=== PATIENT | male | born 1940 | race Caucasian/White ===

== ENCOUNTER 2017-07-19 07:47 | Inpatient (IN) | payer MEDICARE ==
[~2017-07-19] VITALS: Ht 177.8 cm; Wt 104.5 kg
[~2017-07-19 07:47] MED LIST: ALBU90OI INH; ASCO1ER PO; ASCO500 PO; ASPI325 PO; ASPI325EC PO; CHOL10002 PO; ERGO400 PO; FISH1000 PO; GLIP5 PO; LANS30EC PO; LISHYD2025 PO; METF500 PO; METO50 PO; MULVITMIND PO; MULVITMINF PO; OMEG1CAP30 PO; OXYACE5T PO; PRED20 PO; RANI150 PO; ROSU10TA PO; ROSU5 PO; SPACER IH
[2017-07-19 08:14] LABS: BASOPHILS ABSOLUTE AUTO 0.01 K/mm3 (0.00-0.23); BASOPHILS PERCENT AUTO 0 % (0-2); EOSINOPHILS ABSOLUTE AUTO 0.19 K/mm3 (0.00-0.68); EOSINOPHILS PERCENT AUTO 2 % (0-6); Hematocrit 35.3 % (37.0-53.0); Hemoglobin 11.7 g/dL (13.5-17.5); IMMATURE GRAN ABSOLUTE AUTO 0.02 K/mm3 (0.00-0.10); IMMATURE GRAN PERCENT AUTO 0 % (0-1); LYMPHOCYTES ABSOLUTE AUTO 2.82 K/mm3 (0.84-5.20); LYMPHOCYTES PERCENT AUTO 31 % (21-46); MONOCYTES ABSOLUTE AUTO 0.61 K/mm3 (0.16-1.47); MONOCYTES PERCENT AUTO 7 % (4-13); Mean Corpuscular HGB 31.1 pg (26.0-34.0); Mean Corpuscular HGB Conc 33.1 g/dL (31.5-36.5); Mean Corpuscular Volume 94 fL (80-100); Mean Platelet Volume 11.5 fL (9.1-12.4); NEUTROPHILS ABSOLUTE AUTO 5.58 K/mm3 (1.96-9.15); NEUTROPHILS PERCENT AUTO 60 % (41-73); Platelet Count 253 K/mm3 (150-400); RDW Coefficient Variation 13.1 % (11.7-14.2); RDW Standard Deviation 44.8 fL (35.1-46.3); Red Blood Cell Count 3.76 M/mm3 (4.30-5.90); White Blood Cell Count 9.23 K/mm3 (4.00-11.30)
[2017-07-19 08:48] LABS: Thyroid Stimulating Hormone 9.13 uIU/mL (0.360-4.800); Troponin I 0.022 ng/mL (0.000-0.040)
[2017-07-19 08:49] LABS: Albumin, Blood 3.4 g/dL (3.4-5.0); Albumin/Globulin Ratio 0.9 (0.8-1.8); Bilirubin, Total 0.6 mg/dL (0.1-1.0); Bun/Creatinine Ratio 14.2 (12.0-20.0); Calcium, Blood 8.5 mg/dL (8.5-10.1); Creatinine, Blood 1.48 mg/dL (0.60-1.20); Globulin, Blood 3.7 g/dL (2.2-4.0); Potassium, Blood 4.4 mmol/L (3.5-5.5); Total Protein, Blood 7.1 g/dL (6.4-8.2)
[2017-07-19 10:10] LABS: International Normalized Ratio 0.99; Prothrombin Time Results 10.3 Sec (9.7-11.5)
== END 2017-07-19 15:05 | disposition short-term general hospital (02) | DRG 287 ==
LOC: ER 07:47 → ICUW 07:48 → ICUE 07:48
PROVIDERS: Emergency Medicine; Pharmacist
PROC: B216YZZ Fluoroscopy of Right and Left Heart using Other Contrast (ICD-10-PCS; principal; 2017-07-19)
PROC: 4A023N7 Measurement of Cardiac Sampling and Pressure, Left Heart, Percutaneous Approach (ICD-10-PCS; principal; 2017-07-19)
PROC: B211YZZ Fluoroscopy of Multiple Coronary Arteries using Other Contrast (ICD-10-PCS; principal; 2017-07-19)
DX: I25.110 Atherosclerotic heart disease of native coronary artery with unstable angina pectoris (principal); E11.65 Type 2 diabetes mellitus with hyperglycemia; I10 Essential (primary) hypertension; E78.5 Hyperlipidemia, unspecified; G47.33 Obstructive sleep apnea (adult) (pediatric); Z95.5 Presence of coronary angioplasty implant and graft; Z79.84 Long term (current) use of oral hypoglycemic drugs; Z88.0 Allergy status to penicillin; Z68.32 Body mass index [BMI] 32.0-32.9, adult
CPT/HCPCS: 71046; 76937; 80053; 83690; 83880; 84443; 84484; 85025; 85610; 85730; 93005; 93010; 93306; 93454; 96374; 96375; 99152; 99153; 99285; C1769; C1894; J1644; J2060; J2250; J2405; J3010; J7030; J7040; Q9967

== ENCOUNTER 2017-09-21 18:36 | Inpatient (IN) | payer MEDICARE ==
[~2017-09-21] VITALS: Ht 177.8 cm; Wt 100.8 kg
[~2017-09-21 18:36] MED LIST changes: -ALLO100 PO; -ATOR40TA PO; -CARV6.25 PO; -CLOP75 PO; -FURO100EL PO; -FURO40 PO; -LISI5 PO; -Lipofen150 MG PO; -OMEPRAZOLE MAGN20 MG PO; -TICA90TA PO
[2017-09-21] MEDS ORDERED: ATOR40TA PO (21:19)
[2017-09-21] MEDS ORDERED: TICA90TA PO (21:19)
[2017-09-21] MEDS ORDERED: Lipofen150 MG PO (21:20)
[2017-09-21] MEDS ORDERED: FURO100EL PO (21:21)
[2017-09-21] MEDS ORDERED: OMEPRAZOLE MAGN20 MG PO (21:22)
[2017-09-22 09:17] LABS: BASOPHILS ABSOLUTE AUTO 0.02 K/mm3 (0.00-0.23); BASOPHILS PERCENT AUTO 0 % (0-2); EOSINOPHILS PERCENT AUTO 2 % (0-6); Hematocrit 28.9 % (37.0-53.0); Hemoglobin 9.2 g/dL (13.5-17.5); IMMATURE GRAN ABSOLUTE AUTO 0.02 K/mm3 (0.00-0.10); IMMATURE GRAN PERCENT AUTO 0 % (0-1); LYMPHOCYTES ABSOLUTE AUTO 2.06 K/mm3 (0.84-5.20); LYMPHOCYTES PERCENT AUTO 21 % (21-46); MONOCYTES ABSOLUTE AUTO 0.66 K/mm3 (0.16-1.47); MONOCYTES PERCENT AUTO 7 % (4-13); Mean Corpuscular HGB 28.9 pg (26.0-34.0); Mean Corpuscular HGB Conc 31.8 g/dL (31.5-36.5); Mean Corpuscular Volume 91 fL (80-100); Mean Platelet Volume 11.4 fL (9.1-12.4); NEUTROPHILS ABSOLUTE AUTO 6.83 K/mm3 (1.96-9.15); NEUTROPHILS PERCENT AUTO 70 % (41-73); Platelet Count 375 K/mm3 (150-400); RDW Coefficient Variation 14.2 % (11.7-14.2); RDW Standard Deviation 47.3 fL (35.1-46.3); Red Blood Cell Count 3.18 M/mm3 (4.30-5.90); White Blood Cell Count 9.79 K/mm3 (4.00-11.30)
[2017-09-22 09:37] LABS: Bun/Creatinine Ratio 14.2 (12.0-20.0); Calcium, Blood 8.7 mg/dL (8.5-10.1); Creatinine, Blood 1.41 mg/dL (0.60-1.20); Potassium, Blood 3.8 mmol/L (3.5-5.5)
[2017-09-23] MEDS ORDERED: CARV6.25 PO (12:35)
[2017-09-23] MEDS ORDERED: CLOP75 PO (12:37)
[2017-09-23] MEDS ORDERED: LISI5 PO (12:38)
[2017-09-23] MEDS ORDERED: ALLO100 PO (12:39)
[2017-09-23] MEDS ORDERED: FURO40 PO (12:40)
== END 2017-09-23 14:50 | disposition home or self-care (01) | DRG 291 ==
LOC: ER 18:36 → MEDS 20:38 → ENPENDDIS 09-23 10:00 → MEDS 09-23 14:50
PROVIDERS: Hospitalist
DX: I50.23 Acute on chronic systolic (congestive) heart failure (principal); J96.01 Acute respiratory failure with hypoxia; N17.9 Acute kidney failure, unspecified; I13.0 Hypertensive heart and chronic kidney disease with heart failure and stage 1 through stage 4 chronic kidney disease, or unspecified chronic kidney disease; E11.22 Type 2 diabetes mellitus with diabetic chronic kidney disease; I25.5 Ischemic cardiomyopathy; M10.30 Gout due to renal impairment, unspecified site; I48.91 Unspecified atrial fibrillation; D63.1 Anemia in chronic kidney disease; N18.3 Chronic kidney disease, stage 3 (moderate); I25.10 Atherosclerotic heart disease of native coronary artery without angina pectoris; E78.5 Hyperlipidemia, unspecified; E03.9 Hypothyroidism, unspecified; K21.9 Gastro-esophageal reflux disease without esophagitis; I25.2 Old myocardial infarction; Z87.891 Personal history of nicotine dependence; Z79.899 Other long term (current) drug therapy; Z95.5 Presence of coronary angioplasty implant and graft; Z98.890 Other specified postprocedural states; Z88.0 Allergy status to penicillin; Z88.8 Allergy status to other drugs, medicaments and biological substances; Z79.82 Long term (current) use of aspirin; Z79.84 Long term (current) use of oral hypoglycemic drugs
CPT/HCPCS: 36415; 80048; 82947; 83036; 84484; 84550; 85025; 93005; 93010; 93308; 93321; 99285; J1940

== ENCOUNTER → 2017-09-21 | Outpatient (CLI) | payer MEDICARE ==
[~2017-09-21] MED LIST changes: +ALLO100 PO; +ATOR40TA PO; +CARV6.25 PO; +CENTRUM SILVER1 EAC2 PO; +CLOP75 PO; +FURO100EL PO; +FURO40 PO; +LISI5 PO; +Lipofen150 MG PO; +METF500C PO; -MULVITMINF PO; +OMEPRAZOLE MAGN20 MG PO; +TICA90TA PO
[2017-09-21 17:11] LABS: BASOPHILS ABSOLUTE AUTO 0.03 K/mm3 (0.00-0.23); BASOPHILS PERCENT AUTO 0 % (0-2); EOSINOPHILS ABSOLUTE AUTO 0.15 K/mm3 (0.00-0.68); EOSINOPHILS PERCENT AUTO 1 % (0-6); Hematocrit 31.1 % (37.0-53.0); Hemoglobin 9.9 g/dL (13.5-17.5); IMMATURE GRAN ABSOLUTE AUTO 0.03 K/mm3 (0.00-0.10); IMMATURE GRAN PERCENT AUTO 0 % (0-1); LYMPHOCYTES ABSOLUTE AUTO 2.57 K/mm3 (0.84-5.20); LYMPHOCYTES PERCENT AUTO 21 % (21-46); MONOCYTES ABSOLUTE AUTO 0.75 K/mm3 (0.16-1.47); MONOCYTES PERCENT AUTO 6 % (4-13); Mean Corpuscular HGB 28.8 pg (26.0-34.0); Mean Corpuscular HGB Conc 31.8 g/dL (31.5-36.5); Mean Corpuscular Volume 90 fL (80-100); Mean Platelet Volume 11.4 fL (9.1-12.4); NEUTROPHILS ABSOLUTE AUTO 8.63 K/mm3 (1.96-9.15); NEUTROPHILS PERCENT AUTO 71 % (41-73); Platelet Count 464 K/mm3 (150-400); RDW Coefficient Variation 14.4 % (11.7-14.2); RDW Standard Deviation 46.6 fL (35.1-46.3); Red Blood Cell Count 3.44 M/mm3 (4.30-5.90); White Blood Cell Count 12.16 K/mm3 (4.00-11.30)
[2017-09-21 17:26] LABS: Albumin, Blood 2.9 g/dL (3.4-5.0); Albumin/Globulin Ratio 0.6 (0.8-1.8); Bilirubin, Total 0.5 mg/dL (0.1-1.0); Calcium, Blood 8.8 mg/dL (8.5-10.1); Creatinine, Blood 1.66 mg/dL (0.60-1.20); Total Protein, Blood 7.9 g/dL (6.4-8.2)
== END | disposition home or self-care (01) ==
LOC: LAB SHORT 17:06 → LAB EV 17:06
PROVIDERS: Physician Assistant
DX: R06.09 Other forms of dyspnea (principal)
CPT/HCPCS: 80053; 83880; 84484; 85025

== ENCOUNTER 2022-06-06 13:09 | Inpatient (IN) | payer OTHER ==
[~2022-06-06] VITALS: Ht 177.8 cm; Wt 94.8 kg
[~2022-06-06 13:09] MED LIST changes: +ALLO100 PO; +ATOR40TA PO; +CARV6.25 PO; +CLOP75 PO; +FURO100EL PO; +FURO40 PO; +LISI5 PO; +Lipofen150 MG PO; +OMEP20ER PO; +TICA90TA PO
[2022-06-06 13:51] LABS: BASOPHILS ABSOLUTE AUTO 0.01 K/mm3 (0.00-0.23); BASOPHILS PERCENT AUTO 0 % (0-2); EOSINOPHILS PERCENT AUTO 0 % (0-6); Hematocrit 35.9 % (37.0-53.0); Hemoglobin 12.5 g/dL (13.5-17.5); IMMATURE GRAN ABSOLUTE AUTO 0.03 K/mm3 (0.00-0.10); IMMATURE GRAN PERCENT AUTO 0 % (0-1); LYMPHOCYTES ABSOLUTE AUTO 1.28 K/mm3 (0.84-5.20); LYMPHOCYTES PERCENT AUTO 14 % (21-46); MONOCYTES ABSOLUTE AUTO 0.84 K/mm3 (0.16-1.47); MONOCYTES PERCENT AUTO 9 % (4-13); Mean Corpuscular HGB 30.8 pg (26.0-34.0); Mean Corpuscular HGB Conc 34.8 g/dL (31.5-36.5); Mean Corpuscular Volume 88 fL (80-100); Mean Platelet Volume 11.7 fL (9.1-12.4); NEUTROPHILS ABSOLUTE AUTO 6.99 K/mm3 (1.96-9.15); NEUTROPHILS PERCENT AUTO 76 % (41-73); Platelet Count 179 K/mm3 (150-400); RDW Coefficient Variation 13.7 % (11.7-14.2); RDW Standard Deviation 44.6 fL (35.1-46.3); Red Blood Cell Count 4.06 M/mm3 (4.30-5.90); White Blood Cell Count 9.15 K/mm3 (4.00-11.30)
[2022-06-06 14:07] LABS: Albumin, Blood 2.9 g/dL (3.4-5.0); Albumin/Globulin Ratio 0.8 (0.8-1.8); Bilirubin, Total 0.4 mg/dL (0.1-1.0); Bun/Creatinine Ratio 17.1 (12.0-20.0); Calcium, Blood 8.9 mg/dL (8.5-10.1); Creatinine, Blood 1.7 mg/dL (0.60-1.20); Globulin, Blood 3.6 g/dL (2.2-4.0); Total Protein, Blood 6.5 g/dL (6.4-8.2)
[2022-06-06 14:38] LABS: Influenza A, PCR NEGATIVE (NEGATIVE); Influenza B, PCR NEGATIVE (NEGATIVE); Resp Syncytial Virus, PCR NEGATIVE (NEGATIVE)
[2022-06-06 16:36] LABS: Anti-Xa UFH, PHA Monitoring <0.10 IU/mL; International Normalized Ratio 1.02; Prothrombin Time Results 10.7 Sec (9.7-11.5)
[2022-06-06 18:52] LABS: SARS-Cov-2 (COVID-19) PCR, MMC POSITIVE (NEGATIVE)
--- NOTE | 2022-06-06 21:24 | NUR ---
PT ARRIVED FROM ED AT SHIFT CHANGE 1900, LEFT HAND WITH IV WAS VERY SWOLLEN FROM INFILTRATION, IV REMOVED WILL CONTINUE TO MONITOR
[2022-06-07 06:21] LABS: BASOPHILS ABSOLUTE AUTO 0.01 K/mm3 (0.00-0.23); BASOPHILS PERCENT AUTO 0 % (0-2); EOSINOPHILS PERCENT AUTO 0 % (0-6); Hematocrit 35.2 % (37.0-53.0); Hemoglobin 12.1 g/dL (13.5-17.5); IMMATURE GRAN ABSOLUTE AUTO 0.05 K/mm3 (0.00-0.10); IMMATURE GRAN PERCENT AUTO 1 % (0-1); LYMPHOCYTES ABSOLUTE AUTO 0.98 K/mm3 (0.84-5.20); LYMPHOCYTES PERCENT AUTO 12 % (21-46); MONOCYTES ABSOLUTE AUTO 0.53 K/mm3 (0.16-1.47); MONOCYTES PERCENT AUTO 6 % (4-13); Mean Corpuscular HGB 30.8 pg (26.0-34.0); Mean Corpuscular HGB Conc 34.4 g/dL (31.5-36.5); Mean Corpuscular Volume 90 fL (80-100); NEUTROPHILS ABSOLUTE AUTO 6.85 K/mm3 (1.96-9.15); NEUTROPHILS PERCENT AUTO 81 % (41-73); Platelet Count 171 K/mm3 (150-400); RDW Coefficient Variation 13.7 % (11.7-14.2); RDW Standard Deviation 45.1 fL (35.1-46.3); Red Blood Cell Count 3.93 M/mm3 (4.30-5.90); White Blood Cell Count 8.42 K/mm3 (4.00-11.30)
--- NOTE | 2022-06-07 06:27 | NUR ---
PT IS A&O4, SB TO THE BR, USING URINAL, 3LNC, PRN PAIN MEDICATION GIVEN OVERNIGHT FOR MILD THROAT PAIN AND GENERALIZED BODY ACHES, VSS, NO COMPLAINTS OF CP OR SOB, CONTINUE POC
[2022-06-07 06:46] LABS: Albumin, Blood 2.6 g/dL (3.4-5.0); Albumin/Globulin Ratio 0.7 (0.8-1.8); Bilirubin, Total 0.5 mg/dL (0.1-1.0); Bun/Creatinine Ratio 19.2 (12.0-20.0); Calcium, Blood 8.5 mg/dL (8.5-10.1); Creatinine, Blood 2.08 mg/dL (0.60-1.20); Globulin, Blood 3.9 g/dL (2.2-4.0); Potassium, Blood 4.3 mmol/L (3.5-5.5); Total Protein, Blood 6.5 g/dL (6.4-8.2)
--- NOTE | 2022-06-07 08:31 | NUR ---
HOLD HEPARIN FOR 1 HOUR AT 0930 START HEPARIN BACK UP AT 10UTS/KG/HR
[2022-06-08 05:18] LABS: BASOPHILS ABSOLUTE AUTO 0.01 K/mm3 (0.00-0.23); BASOPHILS PERCENT AUTO 0 % (0-2); EOSINOPHILS PERCENT AUTO 0 % (0-6); Hematocrit 34.9 % (37.0-53.0); IMMATURE GRAN ABSOLUTE AUTO 0.05 K/mm3 (0.00-0.10); IMMATURE GRAN PERCENT AUTO 1 % (0-1); LYMPHOCYTES ABSOLUTE AUTO 1.08 K/mm3 (0.84-5.20); LYMPHOCYTES PERCENT AUTO 11 % (21-46); MONOCYTES PERCENT AUTO 7 % (4-13); Mean Corpuscular HGB 30.5 pg (26.0-34.0); Mean Corpuscular HGB Conc 34.4 g/dL (31.5-36.5); Mean Corpuscular Volume 89 fL (80-100); Mean Platelet Volume 12.3 fL (9.1-12.4); NEUTROPHILS ABSOLUTE AUTO 8.01 K/mm3 (1.96-9.15); NEUTROPHILS PERCENT AUTO 81 % (41-73); Platelet Count 188 K/mm3 (150-400); RDW Coefficient Variation 13.6 % (11.7-14.2); RDW Standard Deviation 44.6 fL (35.1-46.3); Red Blood Cell Count 3.93 M/mm3 (4.30-5.90); White Blood Cell Count 9.85 K/mm3 (4.00-11.30)
--- NOTE | 2022-06-08 06:31 | NUR ---
SONOGRAPHY TECHNOLOGIST SUMMARY NO ACUTE CHANGES. PT ON HEPARIN DRIP; 7 UNITS/KG AT START OF SHIFT; AFTER LABS, PHARMACY CALLED TO ADJUST DRIP DOWN TO 6 UNITS/KG HR--VERIFIED W/LAURA RENDON. PT A/OX4 W/SOME FOREGETFULLNESS AND SLOW TO RESPOND. DR INFANTE AT BEDSIDE W/PT AT BEGINNING OF SHIFT--CHANGES MADE TO PT MEDICATIONS. EDUCATED PT ON CHANGES AND ADDITION OF JARDIANCE. PT ON 2L NC O2. VSS. RODRÍGUEZ POWER GLIDE INFUSING HEPARIN ADN DRAWS. PT DENIES CHEST PAIN/PRESSURE OR SOB AT REST. NOTED SOB W/EXERTION. PT ABLE TO MAKE NEEDS KNOWN. CALL LIGHT ACCESSIBLE.
[2022-06-08 16:28] LABS: Bun/Creatinine Ratio 27.1 (12.0-20.0); Calcium, Blood 8.4 mg/dL (8.5-10.1); Creatine Kinase MB 6.6 ng/mL (0.0-3.6); Creatine Kinase MB Index 1.7 (0.0-4.0); Creatinine, Blood 2.14 mg/dL (0.60-1.20); Potassium, Blood 4.3 mmol/L (3.5-5.5)
[2022-06-08 16:39] LABS: Anti-Xa UFH, PHA Monitoring 0.36 IU/mL
--- NOTE | 2022-06-08 20:12 | NUR ---
SHIFT SUMMARY PTN CONTINUES ENHANCED DROPLET PRECAUTIONS. PTN ON HEPARIN DRIP. CRITICAL LAB OF [facility] RETURNED, BUT TRENDING IN RIGHT DIRECTION, DOCUMENTED. COVERAGE FOR BLOOD SUGARS PER ORDERS. TELEMETRY SINUS MANDEEP, BBB, HR 56. NO OTHER ACUTE EVENTS THIS SHIFT. CONTINUE TO MONITOR.
--- NOTE | 2022-06-09 04:52 | NUR ---
JUNIOR ACCOUNTANT SUMMARY NO ACUTE CHANGES. PT PLEASANT AND COOPERATIVE. PT REMAINS ON HEP DRIP--RATE ADJUSTED TO 6.5U/K/HR PER PHARMACY. PT CONCERNED ABOUT ELEVATED BLOOD SUGAR LEVELS; PT EDUCATION ON EFFECTS OF STEROIDS ON BLOOD SUGAR. PT EDUCATION ON HEPARIN AND REASON FOR MULTIIPLE LAB DRAWS. PT DENIES CHEST PAIN/PRESSURE. CALL LIGHT ACCESSIBLE.
--- NOTE | 2022-06-09 05:12 | NUR ---
NURSE NOTE--PHYICIAN CONTACT PT C/O HEART BURN; HX OF GERD. PT TAKES 20MG OMEPROZOLE PER PT AND PHARMACY MED REC. CALL TO PLATFORM MILL SUPERVISOR ; NEW ORDER FOR 20MG OMEPROZOLE AB.
[2022-06-09 07:04] LABS: BASOPHILS PERCENT AUTO 0 % (0-2); EOSINOPHILS PERCENT AUTO 0 % (0-6); Hematocrit 31.6 % (37.0-53.0); Hemoglobin 10.9 g/dL (13.5-17.5); IMMATURE GRAN ABSOLUTE AUTO 0.02 K/mm3 (0.00-0.10); IMMATURE GRAN PERCENT AUTO 0 % (0-1); LYMPHOCYTES ABSOLUTE AUTO 0.67 K/mm3 (0.84-5.20); LYMPHOCYTES PERCENT AUTO 12 % (21-46); MONOCYTES ABSOLUTE AUTO 0.61 K/mm3 (0.16-1.47); MONOCYTES PERCENT AUTO 11 % (4-13); Mean Corpuscular HGB 30.4 pg (26.0-34.0); Mean Corpuscular HGB Conc 34.5 g/dL (31.5-36.5); Mean Corpuscular Volume 88 fL (80-100); Mean Platelet Volume 12.4 fL (9.1-12.4); NEUTROPHILS ABSOLUTE AUTO 4.25 K/mm3 (1.96-9.15); NEUTROPHILS PERCENT AUTO 77 % (41-73); Platelet Count 187 K/mm3 (150-400); RDW Coefficient Variation 13.7 % (11.7-14.2); RDW Standard Deviation 44.9 fL (35.1-46.3); Red Blood Cell Count 3.58 M/mm3 (4.30-5.90); White Blood Cell Count 5.55 K/mm3 (4.00-11.30)
[2022-06-09 08:33] LABS: Calcium, Blood 8.2 mg/dL (8.5-10.1); Creatinine, Blood 2.43 mg/dL (0.60-1.20); Potassium, Blood 4.1 mmol/L (3.5-5.5)
[2022-06-09 12:52] LABS: Bilirubin, Urine Neg (Neg); Blood, Urine 3+ (Neg); Glucose Qualitative, Urine 4+ (Neg); Ketones, Urine Neg (Neg); Leukocyte Esterase, Urine Neg (Neg); Nitrite, Urine Neg (Neg); Protein, Urine 2+ (Neg); Source, Urine Straight Cath; Specific Gravity, Urine 1.015 (1.003-1.022); Urobilinogen, Urine NORM (Normal)
[2022-06-09 13:54] LABS: Appearance, Urine Hazy (Clear); Color, Urine Pale Yellow (P-Yellow)
[2022-06-09 13:56] LABS: Amorphous Light (0-Heavy); Bacteria Mod /hpf; Mucus Light (0-Heavy); Squamous Epithelial Cells Rare /hpf (Few); White Blood Cells, Urine 0-2 /hpf (0-5)
--- NOTE | 2022-06-09 20:28 | NUR ---
SHIFT SUMMARY NO ACUTE EVENTS. HEPARIN DISCONTINUED THIS SHIFT. PTN REPORTS FEEING SOMEWHAT BETTER. O2 WAS DISCONTINUED AND PTN O2 AROUND 95. NO REPORT OF SOB. CONTINUE TO MONITOR.
[2022-06-10 08:43] LABS: Calcium, Blood 8.1 mg/dL (8.5-10.1); Creatinine, Blood 2.25 mg/dL (0.60-1.20); Potassium, Blood 4.1 mmol/L (3.5-5.5)
--- NOTE | 2022-06-10 09:22 | NUR ---
SLEPT WELL OVERNIGHT. MAINTAINING SATURATIONS ON ROOM AIR NO COMPLAINTS OF PAIN OR SOB. LUNGS DIMINISHED THROUGHOUT. CONTINUES TO STAND AT BEDSIDE TO USE URINAL. AOX4, PLEASANT GENTLEMAN COOPERATIVE WITH CARE
[2022-06-10] MEDS ORDERED: JARDIANCE10 MG PO (14:46)
[2022-06-10] MEDS ORDERED: DECADRON6 M1 PO (14:46)
[2022-06-10] MEDS ORDERED: ISODIN20 PO (14:47)
[2022-06-10] MEDS ORDERED: HYDRA25 PO (14:47)
[2022-06-10] MEDS ORDERED: SPIR25 PO (14:48)
--- NOTE | 2022-06-10 16:16 | NUR ---
DISCHARGE NOTE PT DISCHARGED TO HOME AND PICKED UP BY HIS SISTER IN LAW. HE WAS TAKEN TO HIS VEHICLE BY WHEELCHAIR WITH THE ANIMAL PHYSIOLOGY TEACHER. PG AND IV REMOVED SUCCESSFULLY. PT'S MEDICATIONS FAXED TO THE PHARMACY OF HIS CHOICE. DISCHARGE INSTRUCTIONS AND EDUCATION PROVIDED. PERSONAL BELONGINGS WERE RETURNED.
== END 2022-06-10 16:10 | disposition home or self-care (01) | DRG 177 ==
LOC: ER 13:09 → MEDS 15:37
PROVIDERS: Emergency Medicine; Internal Medicine Cardiovascular Disease; Student in an Organized Health Care Education/Training Program; ADMIT Internal Medicine
PROC: 8E0ZXY6 Isolation (ICD-10-PCS; principal; 2022-06-06)
PROC: 3E0333Z Introduction of Anti-inflammatory into Peripheral Vein, Percutaneous Approach (ICD-10-PCS; 2022-06-06)
PROC: XW033E5 Introduction of Remdesivir Anti-infective into Peripheral Vein, Percutaneous Approach, New Technology Group 5 (ICD-10-PCS; 2022-06-06)
PROC: XW0DXM6 Introduction of Baricitinib into Mouth and Pharynx, External Approach, New Technology Group 6 (ICD-10-PCS; 2022-06-06)
DX: U07.1 COVID-19 (principal); I21.4 Non-ST elevation (NSTEMI) myocardial infarction; I50.43 Acute on chronic combined systolic (congestive) and diastolic (congestive) heart failure; J96.01 Acute respiratory failure with hypoxia; J12.82 Pneumonia due to coronavirus disease 2019; N17.9 Acute kidney failure, unspecified; E87.1 Hypo-osmolality and hyponatremia; D50.9 Iron deficiency anemia, unspecified; I25.5 Ischemic cardiomyopathy; E11.22 Type 2 diabetes mellitus with diabetic chronic kidney disease; N40.0 Benign prostatic hyperplasia without lower urinary tract symptoms; N18.32 Chronic kidney disease, stage 3b; K21.9 Gastro-esophageal reflux disease without esophagitis; E78.1 Pure hyperglyceridemia; Z95.1 Presence of aortocoronary bypass graft; Z98.49 Cataract extraction status, unspecified eye; Z98.890 Other specified postprocedural states; Z88.0 Allergy status to penicillin; Z88.8 Allergy status to other drugs, medicaments and biological substances; Z79.82 Long term (current) use of aspirin; Z79.84 Long term (current) use of oral hypoglycemic drugs; Z79.899 Other long term (current) drug therapy
CPT/HCPCS: 0241U; 36415; 71045; 78580; 80048; 80053; 81001; 82550; 82553; 82570; 82947; 83880; 84145; 84300; 84484; 84540; 85025; 85379; 85520; 85610; 87086; 93005; 93010; 96365; 96375; 99285-25; A9270; A9540; C8929; J0248; J0696; J1100; J1644; J1815; J1940; J7050; Q9957

== ENCOUNTER 2022-06-21 23:38 | Inpatient (IN) | payer OTHER ==
[~2022-06-21] VITALS: Ht 180.3 cm; Wt 87.0 kg
[~2022-06-21 23:38] MED LIST changes: -CHOL10002 PO; +DECADRON6 M1 PO; -GLIP5 PO; +GLUCOPHAGE1000 M1 PO; +HYDRA25 PO; +ISODIN20 PO; +JARDIANCE10 MG PO; -METF500C PO; -OMEG1CAP30 PO; +OMEGA-3-FISH O1 EAC3 PO; +SPIR25 PO; +VITAMIN D5000 UNIT PO
[2022-06-22 01:41] LABS: BASOPHILS ABSOLUTE AUTO 0.04 K/mm3 (0.00-0.23); BASOPHILS PERCENT AUTO 0 % (0-2); EOSINOPHILS ABSOLUTE AUTO 0.09 K/mm3 (0.00-0.68); EOSINOPHILS PERCENT AUTO 1 % (0-6); Hemoglobin 12.5 g/dL (13.5-17.5); IMMATURE GRAN ABSOLUTE AUTO 0.07 K/mm3 (0.00-0.10); IMMATURE GRAN PERCENT AUTO 1 % (0-1); LYMPHOCYTES ABSOLUTE AUTO 2.35 K/mm3 (0.84-5.20); LYMPHOCYTES PERCENT AUTO 16 % (21-46); MONOCYTES ABSOLUTE AUTO 0.67 K/mm3 (0.16-1.47); MONOCYTES PERCENT AUTO 4 % (4-13); Mean Corpuscular HGB 29.8 pg (26.0-34.0); Mean Corpuscular HGB Conc 32.9 g/dL (31.5-36.5); Mean Corpuscular Volume 91 fL (80-100); Mean Platelet Volume 12.5 fL (9.1-12.4); NEUTROPHILS ABSOLUTE AUTO 11.94 K/mm3 (1.96-9.15); NEUTROPHILS PERCENT AUTO 79 % (41-73); Platelet Count 197 K/mm3 (150-400); RDW Coefficient Variation 13.7 % (11.7-14.2); RDW Standard Deviation 45.1 fL (35.1-46.3); White Blood Cell Count 15.16 K/mm3 (4.00-11.30)
[2022-06-22 01:48] LABS: Albumin, Blood 2.1 g/dL (3.4-5.0); Albumin/Globulin Ratio 0.5 (0.8-1.8); Bilirubin, Total 0.7 mg/dL (0.1-1.0); Bun/Creatinine Ratio 27.3 (12.0-20.0); Calcium, Blood 8.4 mg/dL (8.5-10.1); Creatinine, Blood 1.98 mg/dL (0.60-1.20); Globulin, Blood 4.5 g/dL (2.2-4.0); Potassium, Blood 5.2 mmol/L (3.5-5.5); Total Protein, Blood 6.6 g/dL (6.4-8.2)
[2022-06-22 02:07] LABS: Influenza A, PCR NEGATIVE (NEGATIVE); Influenza B, PCR NEGATIVE (NEGATIVE); Resp Syncytial Virus, PCR NEGATIVE (NEGATIVE)
[2022-06-22 03:27] LABS: SARS-Cov-2 (COVID-19) PCR, MMC POSITIVE (NEGATIVE)
[2022-06-22 06:06] LABS: BASOPHILS ABSOLUTE AUTO 0.02 K/mm3 (0.00-0.23); BASOPHILS PERCENT AUTO 0 % (0-2); EOSINOPHILS ABSOLUTE AUTO 0.07 K/mm3 (0.00-0.68); EOSINOPHILS PERCENT AUTO 1 % (0-6); Hematocrit 33.9 % (37.0-53.0); Hemoglobin 11.6 g/dL (13.5-17.5); IMMATURE GRAN ABSOLUTE AUTO 0.05 K/mm3 (0.00-0.10); IMMATURE GRAN PERCENT AUTO 0 % (0-1); LYMPHOCYTES ABSOLUTE AUTO 2.62 K/mm3 (0.84-5.20); LYMPHOCYTES PERCENT AUTO 21 % (21-46); MONOCYTES ABSOLUTE AUTO 0.55 K/mm3 (0.16-1.47); MONOCYTES PERCENT AUTO 4 % (4-13); Mean Corpuscular HGB 30.2 pg (26.0-34.0); Mean Corpuscular HGB Conc 34.2 g/dL (31.5-36.5); Mean Corpuscular Volume 88 fL (80-100); Mean Platelet Volume 11.6 fL (9.1-12.4); NEUTROPHILS ABSOLUTE AUTO 9.26 K/mm3 (1.96-9.15); NEUTROPHILS PERCENT AUTO 74 % (41-73); Platelet Count 220 K/mm3 (150-400); RDW Coefficient Variation 13.7 % (11.7-14.2); RDW Standard Deviation 44.2 fL (35.1-46.3); Red Blood Cell Count 3.84 M/mm3 (4.30-5.90); White Blood Cell Count 12.57 K/mm3 (4.00-11.30)
[2022-06-22 06:28] LABS: Bun/Creatinine Ratio 27.4 (12.0-20.0); Calcium, Blood 8.4 mg/dL (8.5-10.1); Creatinine, Blood 2.12 mg/dL (0.60-1.20); Potassium, Blood 4.9 mmol/L (3.5-5.5)
--- NOTE | 2022-06-22 07:37 | NUR ---
END OF SHIFT NURSING REPORT Presented to the ED with SOB and complaints of chest pain. Admitted for CHF exacerbation with COVID 19 pneumonia. Denies Pain or SOB. Ambulates x1 assistance. Placed on droplet isolation. AM Labs drawn and
[2022-06-22] MEDS ORDERED: NITROGLYCERIN0.4 M3 SL (13:12)
[2022-06-22] MEDS ORDERED: GLIP10 PO (13:21)
[2022-06-22] MEDS ORDERED: HYDROCHLOROTH12.5 MG PO (13:22)
--- NOTE | 2022-06-22 17:01 | NUR ---
SHIFT SUMMARY PATIENT DENIES PAIN, NAUSEA, AND SHORTNESS OF BREATH AT REST. PATIENT IS A SBA WITH A FWW. PATIENT NEEDS REMINDERS TO USE FWW. PATIENT IS ON 2L VIA N/C. PATIENT DOES DESAT WITH ACTIVITY, BUT RECOVERS QUICKLY AFTER STOPPING AND TAKING SOME DEEP BREATHS. PATIENT WORKED WITH PT AND OT TODAY, SEE NOTES. PATIENT IS EATING AND DRINKING WELL. PATIENT COVID+, PROPER PPE MAINTAINED THROUGHOUT SHIFT. PATIENT IS PLEASANT AND COOPERATIVE WITH CARE. PATIENT HAD VISITOR IN AFTERNOON.
[2022-06-23 05:38] LABS: BASOPHILS ABSOLUTE AUTO 0.02 K/mm3 (0.00-0.23); BASOPHILS PERCENT AUTO 0 % (0-2); EOSINOPHILS ABSOLUTE AUTO 0.11 K/mm3 (0.00-0.68); EOSINOPHILS PERCENT AUTO 1 % (0-6); Hematocrit 35.4 % (37.0-53.0); Hemoglobin 11.9 g/dL (13.5-17.5); IMMATURE GRAN ABSOLUTE AUTO 0.05 K/mm3 (0.00-0.10); IMMATURE GRAN PERCENT AUTO 1 % (0-1); LYMPHOCYTES ABSOLUTE AUTO 2.52 K/mm3 (0.84-5.20); LYMPHOCYTES PERCENT AUTO 24 % (21-46); MONOCYTES ABSOLUTE AUTO 0.61 K/mm3 (0.16-1.47); MONOCYTES PERCENT AUTO 6 % (4-13); Mean Corpuscular HGB 29.6 pg (26.0-34.0); Mean Corpuscular HGB Conc 33.6 g/dL (31.5-36.5); Mean Corpuscular Volume 88 fL (80-100); Mean Platelet Volume 11.7 fL (9.1-12.4); NEUTROPHILS ABSOLUTE AUTO 7.39 K/mm3 (1.96-9.15); NEUTROPHILS PERCENT AUTO 69 % (41-73); Platelet Count 259 K/mm3 (150-400); RDW Coefficient Variation 13.2 % (11.7-14.2); RDW Standard Deviation 43.3 fL (35.1-46.3); Red Blood Cell Count 4.02 M/mm3 (4.30-5.90)
--- NOTE | 2022-06-23 06:00 | NUR ---
END OF SHIFT NURSING REPORT Patient is a 82 y/o male who Presented to the ED with SOB and complaints of chest pain. Admitted for CHF exacerbation with COVID 19 pneumonia. AOX4, and ambulates in room using walker x1 stand-by assist. Lung sounds clear, denies cough, on 2L NC and maintain sats >94%. No acute events overnight. Am labs drawn.
[2022-06-23 06:03] LABS: Bun/Creatinine Ratio 25.2 (12.0-20.0); Calcium, Blood 8.4 mg/dL (8.5-10.1); Creatinine, Blood 2.3 mg/dL (0.60-1.20); Magnesium, Blood 2.3 mg/dL (1.6-2.4); Phosphorus, Blood 4.6 mg/dL (2.5-4.9); Potassium, Blood 4.4 mmol/L (3.5-5.5)
--- NOTE | 2022-06-23 11:58 | NUR ---
"Spiritual Care | Pt. Request Pt. is awake and welcomes my visit. Nurse is present taking vitals and giving meds. Pt. is pleasant and has no primary concerns. Consider matters of esperanza and belief. Listen with empathy, encourragement and a calming presence. Pt. displays evidence of being engaged and awareness. Facilitated a lengthy life review. Prayed with Pt. Pt. verbalized gratitude for the spiritual care visit."
--- NOTE | 2022-06-23 19:34 | NUR ---
SHIFT SUMMARY PTN FEELING BETTER. ENHANCED ISOLATION PRECAUTIONS IN PLACE FOR COVID POSITIVE. DM WITH AC/HS CHECKS. PTN ON 2L NC. PTN WITH STENTS X3, NSTEMI. MOISES FROM TELEMETRY CALLED TWICE THIS SHIFT TO REPORT A 5-RUN, 6-RUN, AND 8-RUN OF V-TACH, RESOLVED. PTN REPORTED NO UNTOWARD EVENT. OTHERWISE PTN WAS SINUS WITH HR 73, ALTHOUGH REPORT FROM TELEMETRY WAS THAT HIS RHYTHMS WERE SEMI-REGULAR WITH PAC'S, PVC'S AT TIMES. CONTINUE TO MONITOR.
[2022-06-24 06:33] LABS: BASOPHILS ABSOLUTE AUTO 0.01 K/mm3 (0.00-0.23); BASOPHILS PERCENT AUTO 0 % (0-2); EOSINOPHILS ABSOLUTE AUTO 0.11 K/mm3 (0.00-0.68); EOSINOPHILS PERCENT AUTO 1 % (0-6); Hematocrit 33.6 % (37.0-53.0); Hemoglobin 11.3 g/dL (13.5-17.5); IMMATURE GRAN ABSOLUTE AUTO 0.06 K/mm3 (0.00-0.10); IMMATURE GRAN PERCENT AUTO 1 % (0-1); LYMPHOCYTES ABSOLUTE AUTO 2.42 K/mm3 (0.84-5.20); LYMPHOCYTES PERCENT AUTO 25 % (21-46); MONOCYTES ABSOLUTE AUTO 0.54 K/mm3 (0.16-1.47); MONOCYTES PERCENT AUTO 6 % (4-13); Mean Corpuscular HGB 29.6 pg (26.0-34.0); Mean Corpuscular HGB Conc 33.6 g/dL (31.5-36.5); Mean Corpuscular Volume 88 fL (80-100); Mean Platelet Volume 11.6 fL (9.1-12.4); NEUTROPHILS ABSOLUTE AUTO 6.47 K/mm3 (1.96-9.15); NEUTROPHILS PERCENT AUTO 67 % (41-73); Platelet Count 240 K/mm3 (150-400); RDW Coefficient Variation 13.2 % (11.7-14.2); RDW Standard Deviation 42.5 fL (35.1-46.3); Red Blood Cell Count 3.82 M/mm3 (4.30-5.90); White Blood Cell Count 9.61 K/mm3 (4.00-11.30)
[2022-06-24 07:04] LABS: Albumin, Blood 2.2 g/dL (3.4-5.0); Albumin/Globulin Ratio 0.5 (0.8-1.8); Bilirubin, Total 0.5 mg/dL (0.1-1.0); Bun/Creatinine Ratio 21.6 (12.0-20.0); Calcium, Blood 8.6 mg/dL (8.5-10.1); Creatinine, Blood 2.5 mg/dL (0.60-1.20); Globulin, Blood 4.5 g/dL (2.2-4.0); Potassium, Blood 4.4 mmol/L (3.5-5.5); Total Protein, Blood 6.7 g/dL (6.4-8.2)
--- NOTE | 2022-06-24 17:19 | NUR ---
SHIFT SUMMARY NO ACUTE CHANGES DURING SHIFT. PT ALERT AND ORIENTED, CALLS APPROPRIATELY. PT TITRATED TO RA, TOLERATING. PT SBA FWW IN ROOM. PT TRANSITIONED TO PO LASIX, RECHECK BNP IN AM. NO C/O PAIN. WILL CONTINUE TO MONITOR. CALL LIGHT WITHIN REACH.
[2022-06-25 06:12] LABS: BASOPHILS ABSOLUTE AUTO 0.04 K/mm3 (0.00-0.23); BASOPHILS PERCENT AUTO 0 % (0-2); EOSINOPHILS ABSOLUTE AUTO 0.13 K/mm3 (0.00-0.68); EOSINOPHILS PERCENT AUTO 1 % (0-6); Hematocrit 34.8 % (37.0-53.0); Hemoglobin 11.8 g/dL (13.5-17.5); IMMATURE GRAN ABSOLUTE AUTO 0.08 K/mm3 (0.00-0.10); IMMATURE GRAN PERCENT AUTO 1 % (0-1); LYMPHOCYTES ABSOLUTE AUTO 2.68 K/mm3 (0.84-5.20); LYMPHOCYTES PERCENT AUTO 25 % (21-46); MONOCYTES ABSOLUTE AUTO 0.71 K/mm3 (0.16-1.47); MONOCYTES PERCENT AUTO 7 % (4-13); Mean Corpuscular HGB 29.7 pg (26.0-34.0); Mean Corpuscular HGB Conc 33.9 g/dL (31.5-36.5); Mean Corpuscular Volume 88 fL (80-100); Mean Platelet Volume 11.6 fL (9.1-12.4); NEUTROPHILS ABSOLUTE AUTO 7.27 K/mm3 (1.96-9.15); NEUTROPHILS PERCENT AUTO 67 % (41-73); Platelet Count 294 K/mm3 (150-400); RDW Coefficient Variation 13.2 % (11.7-14.2); RDW Standard Deviation 42.2 fL (35.1-46.3); Red Blood Cell Count 3.97 M/mm3 (4.30-5.90); White Blood Cell Count 10.91 K/mm3 (4.00-11.30)
[2022-06-25 06:42] LABS: Albumin, Blood 2.4 g/dL (3.4-5.0); Albumin/Globulin Ratio 0.5 (0.8-1.8); Bilirubin, Total 0.5 mg/dL (0.1-1.0); Bun/Creatinine Ratio 24.3 (12.0-20.0); Creatinine, Blood 2.51 mg/dL (0.60-1.20); Globulin, Blood 4.8 g/dL (2.2-4.0); Potassium, Blood 4.6 mmol/L (3.5-5.5); Total Protein, Blood 7.2 g/dL (6.4-8.2)
[2022-06-25] MEDS ORDERED: ALLO100 PO (16:58)
[2022-06-25] MEDS ORDERED: FURO40 PO (16:59)
--- NOTE | 2022-06-25 17:59 | NUR ---
DISCHARGE SUMMARY DISCHARGE, MEDICATION, AND FOLLOWUP INSTRUCTIONS GIVEN TO PT. PT VOICED COMPLETE UNDERSTANDING AND HAS NO QUESTIONS AT THIS TIME. IV REMOVED WITH CATHETER TIP INTACT. TELE BOX REMOVED. WILL CONTINUE TO MONITOR UNTIL PT LEAVES UNIT.
== END 2022-06-25 18:28 | disposition home health service (06) | DRG 291 ==
LOC: ER 23:38 → MEDS 06-22 04:24
PROVIDERS: Emergency Medicine; Family Medicine; Hospitalist; Internal Medicine; ADMIT Internal Medicine
DX: I13.0 Hypertensive heart and chronic kidney disease with heart failure and stage 1 through stage 4 chronic kidney disease, or unspecified chronic kidney disease (principal); I50.23 Acute on chronic systolic (congestive) heart failure; J96.01 Acute respiratory failure with hypoxia; U07.1 COVID-19; N17.9 Acute kidney failure, unspecified; N18.4 Chronic kidney disease, stage 4 (severe); E87.1 Hypo-osmolality and hyponatremia; I25.10 Atherosclerotic heart disease of native coronary artery without angina pectoris; E11.22 Type 2 diabetes mellitus with diabetic chronic kidney disease; I95.9 Hypotension, unspecified; E78.1 Pure hyperglyceridemia; D50.9 Iron deficiency anemia, unspecified; E78.5 Hyperlipidemia, unspecified; N40.0 Benign prostatic hyperplasia without lower urinary tract symptoms; K21.9 Gastro-esophageal reflux disease without esophagitis; Z95.1 Presence of aortocoronary bypass graft; Z95.5 Presence of coronary angioplasty implant and graft; Z87.01 Personal history of pneumonia (recurrent); Z88.0 Allergy status to penicillin; Z88.1 Allergy status to other antibiotic agents; Z88.8 Allergy status to other drugs, medicaments and biological substances; Z79.899 Other long term (current) drug therapy; Z79.82 Long term (current) use of aspirin; Z79.84 Long term (current) use of oral hypoglycemic drugs; Z79.02 Long term (current) use of antithrombotics/antiplatelets; Z79.01 Long term (current) use of anticoagulants; Z98.49 Cataract extraction status, unspecified eye; I25.2 Old myocardial infarction; Z98.890 Other specified postprocedural states; Z87.891 Personal history of nicotine dependence
CPT/HCPCS: 0241U; 36415; 71045; 80048; 80053; 82947; 83735; 83880; 84100; 84484; 85025; 85379; 93005; 93010; 94761; 94762; 96374; 97110; 97116; 97162; 97165; 97530; 99285-25; A9270; J1650; J1940

== ENCOUNTER → 2022-10-18 | Outpatient (CLI) | payer OTHER ==
[~2022-10-18] MED LIST changes: +GLIP10 PO; +HYDROCHLOROTH12.5 MG PO; +NITROGLYCERIN0.4 M3 SL
== END | disposition home or self-care (01) ==
LOC: LAB SHORT 09:45 → LAB 09:45
PROVIDERS: Family Medicine
DX: E11.69 Type 2 diabetes mellitus with other specified complication (principal); E11.59 Type 2 diabetes mellitus with other circulatory complications; E11.29 Type 2 diabetes mellitus with other diabetic kidney complication; E11.22 Type 2 diabetes mellitus with diabetic chronic kidney disease; N18.9 Chronic kidney disease, unspecified
CPT/HCPCS: 83036

== ENCOUNTER 2023-03-05 00:13 | Observation (INO) | payer OTHER ==
[2023-03-05] VITALS (16 sets, daily range): BP systolic 116–151; BP diastolic 47–82
[~2023-03-05] VITALS: Ht 177.8 cm; Wt 93.8 kg
[2023-03-05 01:00] LABS: BASOPHILS ABSOLUTE AUTO 0.03 K/mm3 (0.00-0.23); BASOPHILS PERCENT AUTO 0 % (0-2); EOSINOPHILS PERCENT AUTO 2 % (0-6); Hematocrit 37.7 % (37.0-53.0); Hemoglobin 12.3 g/dL (13.5-17.5); IMMATURE GRAN ABSOLUTE AUTO 0.03 K/mm3 (0.00-0.10); IMMATURE GRAN PERCENT AUTO 0 % (0-1); LYMPHOCYTES ABSOLUTE AUTO 3.43 K/mm3 (0.84-5.20); LYMPHOCYTES PERCENT AUTO 32 % (21-46); MONOCYTES ABSOLUTE AUTO 0.74 K/mm3 (0.16-1.47); MONOCYTES PERCENT AUTO 7 % (4-13); Mean Corpuscular HGB 29.1 pg (26.0-34.0); Mean Corpuscular HGB Conc 32.6 g/dL (31.5-36.5); Mean Corpuscular Volume 89 fL (80-100); Mean Platelet Volume 11.4 fL (9.1-12.4); NEUTROPHILS ABSOLUTE AUTO 6.44 K/mm3 (1.96-9.15); NEUTROPHILS PERCENT AUTO 59 % (41-73); Platelet Count 263 K/mm3 (150-400); RDW Coefficient Variation 14.6 % (11.7-14.2); RDW Standard Deviation 47.1 fL (35.1-46.3); Red Blood Cell Count 4.23 M/mm3 (4.30-5.90); White Blood Cell Count 10.87 K/mm3 (4.00-11.30)
[2023-03-05 01:12] LABS: Albumin, Blood 3.4 g/dL (3.4-5.0); Albumin/Globulin Ratio 0.9 (0.8-1.8); Bilirubin, Total 0.3 mg/dL (0.1-1.0); Bun/Creatinine Ratio 22.7 (12.0-20.0); Creatinine, Blood 2.16 mg/dL (0.60-1.20); Globulin, Blood 3.6 g/dL (2.2-4.0); Potassium, Blood 3.9 mmol/L (3.5-5.5)
[2023-03-05 02:34] LABS: Anti-Xa UFH, PHA Monitoring <0.10 IU/mL; International Normalized Ratio 0.97; Prothrombin Time Results 10.2 Sec (9.7-11.5)
[2023-03-05 03:54] LABS: Alanine Aminotransfer (ALT/SGP 28 U/L (12-78); Albumin, Blood 3.3 g/dL (3.4-5.0); Alk Phos 129 U/L (50-136); Anion Gap 7 mmol/L (6-16); Aspartate Aminotrans (AST/SGOT 30 U/L (12-37); Bilirubin, Total 0.3 mg/dL (0.1-1.0); Blood Urea Nitrogen 49 mg/dL (8-24); Bun/Creatinine Ratio 23.4 (12.0-20.0); CO2, Blood 25 mmol/L (21-32); Calcium, Blood 8.9 mg/dL (8.5-10.1); Chloride, Blood 108 mmol/L (98-108); Cholesterol 151 mg/dL (50-200); Creatinine, Blood 2.09 mg/dL (0.60-1.20); Globulin, Blood 3.3 g/dL (2.2-4.0); Glomerular Filtration Rate 31 (60-); Glucose, Blood 184 mg/dL (70-99); HDL Cholesterol 30 mg/dL (>39); Low Density Lipoprotein Chol 89 mg/dL (0-110); Potassium, Blood 4.1 mmol/L (3.5-5.5); Sodium, Blood 140 mmol/L (136-145); Total Protein, Blood 6.6 g/dL (6.4-8.2); Triglycerides 158 mg/dL (30-160); Very Low Density Lipoprot Chol 31 mg/dL (6-32)
--- NOTE | 2023-03-05 05:40 | NUR ---
ARRIVAL TO ICU PT A/O X 4. FOLLOWS DIRECTIONS. PT UNABLE TO CONFIRM MEDICATIONS. PT'S SISTER IN LAW MAY BE ABLE TO BRING THEM IN THE AM. PT DENIES CHEST PAIN/PRESSURE OR SOB. HEPARIN GTT INFUSING. SEE FLOWSHEET FOR RATE. ON RA. VSS. SR RATE 50-60'S. SBP 130'S. ABD DISTENDED. BLE c MINIMAL EDEMA. STANDS AT BEDSIDE TO VOID WITH STANDBY ASSIST. CALL LIGHT IN REACH. WILL REPORT OFF TO ONCOMING RN.
--- NOTE | 2023-03-05 16:04 | NUR ---
SP ANGIO: RIGHT WIRST. TR BAND RECOVERED AT 1600 SITE HAS SOME ECCHYMOSIS, IS NONTENDER, AND HAS SOME OOZING OF SEROSANGUINEOUS FLUID. A SMALL CHERYL DRESSING W/ TEGADERM DRESSING WAS PLACED OVER THE SITE. ARM BOARD IN PLACE. VITAL SIGNS STABLE.
--- NOTE | 2023-03-05 17:45 | NUR ---
EVENING PCU SUMMARY PT CAME TO PCU THIS AFTERNOON. WE HAVE HAD NO ACUTE EVENTS. HIS TR BAND HAS BEEN FULLY RECOVERED AND HE HAS A CHERYL AND TEGADERM DRESSING IN PLACE THAT IS C/D/I. ON TELE THE PT IS SR 60'S AND BP IS STABLE. THE PT DENIES NAY ANGINA OR CHEST PRESSURE. HE HAS BEEN ON RA W/ NO C/O SOB. THE PT DOES BRUIS VERY EASILY. FROM HIS CBG FINGER STICK. 1/3 OF HIS FINGER BRUISED, AND AT HIS ANGIO SITE THEIR IS SOME BRUISING. PT STATES THAT AT PREVIOUS HOSPITALIZATIONS HE HAS AN IV PLACED IN HIS HAND AND HIS ENTIRE HAND SWELLED AND BRUISED. PT IS A&OX4, AND CALLS APPROPRAITELY. FIRE IGNITION RISK HAS BEEN EVALUATED.
--- NOTE | 2023-03-05 23:20 | NUR ---
ASSUMPTION OF CARE THIS RN ASSUMED CARE AT APPROX 1915. PATIENT IS PLEASANT, ALERT AND ORIENTED X4. COOPERATIVE WITH CARE AND ABLE TO MAKE NEEDS KNOWN. VSS. TELEMETRY SHOWING SINUS 70's. BP STABLE. DENIES CHEST PAIN OR PRESSURE. S/P ANGIO. SMALL HEMATOMA AT R RADIAL SITE. SITE IS SOFT, NONTENDER. CHERYL AND TEGADERM DRESSING IN PLACE, C/D/I, NO SHADOWING NOTED. PATIENT IS ON ROOM AIR, SATS >90%. IS A STAND BY ASSIST IN ROOM. USES URINAL INDEPENDENTLY IN BED, VOIDING. CALL LIGHT IN REACH.
[2023-03-06 03:56] VITALS: BP 130/66
[2023-03-06 04:32] LABS: BASOPHILS ABSOLUTE AUTO 0.03 K/mm3 (0.00-0.23); BASOPHILS PERCENT AUTO 0 % (0-2); EOSINOPHILS ABSOLUTE AUTO 0.25 K/mm3 (0.00-0.68); EOSINOPHILS PERCENT AUTO 3 % (0-6); Hematocrit 33.3 % (37.0-53.0); IMMATURE GRAN ABSOLUTE AUTO 0.02 K/mm3 (0.00-0.10); IMMATURE GRAN PERCENT AUTO 0 % (0-1); LYMPHOCYTES ABSOLUTE AUTO 1.77 K/mm3 (0.84-5.20); LYMPHOCYTES PERCENT AUTO 17 % (21-46); MONOCYTES ABSOLUTE AUTO 0.75 K/mm3 (0.16-1.47); MONOCYTES PERCENT AUTO 7 % (4-13); Mean Corpuscular HGB 28.9 pg (26.0-34.0); Mean Corpuscular Volume 88 fL (80-100); Mean Platelet Volume 11.2 fL (9.1-12.4); NEUTROPHILS ABSOLUTE AUTO 7.38 K/mm3 (1.96-9.15); NEUTROPHILS PERCENT AUTO 72 % (41-73); Platelet Count 218 K/mm3 (150-400); RDW Standard Deviation 47.6 fL (35.1-46.3)
[2023-03-06 04:51] LABS: Albumin/Globulin Ratio 0.9 (0.8-1.8); Bilirubin, Total 0.5 mg/dL (0.1-1.0); Bun/Creatinine Ratio 21.1 (12.0-20.0); Calcium, Blood 8.8 mg/dL (8.5-10.1); Creatinine, Blood 2.42 mg/dL (0.60-1.20); Globulin, Blood 3.2 g/dL (2.2-4.0); Potassium, Blood 4.1 mmol/L (3.5-5.5); Total Protein, Blood 6.2 g/dL (6.4-8.2)
--- NOTE | 2023-03-06 05:07 | NUR ---
SHIFT SUMMARY NO ACUTE CHANGES SINCE PREVIOUS ASSUMPTION OF CARE NOTE. PATIENT SLEPT INTERMITTENTLY THROUGHOUT SHIFT. EASILY AROUSABLE TO VERBAL STIMULI. VS REMAIN STABLE. TELEMETRY CONTINUING TO SHOW SINUS 60's. BP STABLE. R RADIAL SITE SOFT, NONTENDER. MILD SWELLING. DRESSING REMAINS C/D/I. ARM BOARD IN PLACE. REMAINS ON ROOM AIR, SATS >90%. USES URINAL INDEPENDENTLY, VOIDING. ABLE TO REPOSITION HIMSELF INDEPENDENTLY IN BED. CALL LIGHT IN REACH. PATIENT IS CURRENTLY RESTING WITH EYES CLOSED, RESPIRATIONS EVEN. NO SIGNS OF DISTRESS NOTED. WILL REPORT TO ONCOMING RN.
--- NOTE | 2023-03-06 07:15 | NUR ---
Pt is asleep. Briefly checked in on patient at time of bedside report from HERMES Dixon and HERMES Monteiro.
[2023-03-06 07:38] VITALS: BP 146/73
--- NOTE | 2023-03-06 09:02 | NUR ---
Scheduled medications adminsitered as ordered. The pt is feeling well this morning. He is drinking water.
[2023-03-06 11:12] VITALS: BP 115/56
--- NOTE | 2023-03-06 11:17 | NUR ---
Dr. Trujillo here to see the patient.
[2023-03-06] MEDS ORDERED: ASPI81CH PO (12:05)
[2023-03-06] MEDS ORDERED: CLOP75 PO (12:06)
[2023-03-06] MEDS ORDERED: SPIR25 PO (12:06)
[2023-03-06] MEDS ORDERED: GLIP5 PO (12:06)
== END 2023-03-06 12:45 | disposition home or self-care (01) ==
LOC: ER 00:13 → ICUE 00:14 → PCU 13:40 → ENPENDDIS 03-06 12:15 → PCU 03-06 12:45
PROVIDERS: Family Medicine; Internal Medicine; Student in an Organized Health Care Education/Training Program; ADMIT Student in an Organized Health Care Education/Training Program
DX: I25.118 Atherosclerotic heart disease of native coronary artery with other forms of angina pectoris (principal); E78.5 Hyperlipidemia, unspecified; I21.4 Non-ST elevation (NSTEMI) myocardial infarction; R79.89 Other specified abnormal findings of blood chemistry; E11.22 Type 2 diabetes mellitus with diabetic chronic kidney disease; I13.0 Hypertensive heart and chronic kidney disease with heart failure and stage 1 through stage 4 chronic kidney disease, or unspecified chronic kidney disease; N18.30 Chronic kidney disease, stage 3 unspecified; I50.9 Heart failure, unspecified; Z79.84 Long term (current) use of oral hypoglycemic drugs; Z79.899 Other long term (current) drug therapy; Z79.82 Long term (current) use of aspirin; Z88.0 Allergy status to penicillin; Z87.891 Personal history of nicotine dependence; Z98.61 Coronary angioplasty status
CPT/HCPCS: 36415; 71046; 76937; 80053; 80061; 82947; 84484; 85025; 85347; 85520; 85610; 92920; 93005; 93010; 93458; 96374-59; 99152; 99153; 99285-25; A9270; C1725; C1769; C1887; C1894; C8929; G0378; J1644; J1815; J2250; J3010; J3246; J7030; J7050; Q9957; Q9967

== ENCOUNTER 2023-05-21 04:03 | Inpatient (IN) | payer OTHER ==
[~2023-05-21] VITALS: Ht 177.8 cm; Wt 95.1 kg
[2023-05-21] VITALS (44 sets, daily range): BP systolic 106–158; BP diastolic 51–98
[~2023-05-21 04:03] MED LIST changes: +ASPI81CH PO; +GLIP5 PO
[2023-05-21 04:32] LABS: BASOPHILS ABSOLUTE AUTO 0.02 K/mm3 (0.00-0.23); BASOPHILS PERCENT AUTO 0 % (0-2); EOSINOPHILS ABSOLUTE AUTO 0.14 K/mm3 (0.00-0.68); EOSINOPHILS PERCENT AUTO 1 % (0-6); Hematocrit 34.7 % (37.0-53.0); Hemoglobin 11.4 g/dL (13.5-17.5); IMMATURE GRAN ABSOLUTE AUTO 0.04 K/mm3 (0.00-0.10); IMMATURE GRAN PERCENT AUTO 0 % (0-1); LYMPHOCYTES ABSOLUTE AUTO 2.99 K/mm3 (0.84-5.20); LYMPHOCYTES PERCENT AUTO 30 % (21-46); MONOCYTES ABSOLUTE AUTO 0.75 K/mm3 (0.16-1.47); MONOCYTES PERCENT AUTO 8 % (4-13); Mean Corpuscular HGB 30.2 pg (26.0-34.0); Mean Corpuscular HGB Conc 32.9 g/dL (31.5-36.5); Mean Corpuscular Volume 92 fL (80-100); Mean Platelet Volume 11.9 fL (9.1-12.4); NEUTROPHILS ABSOLUTE AUTO 5.92 K/mm3 (1.96-9.15); NEUTROPHILS PERCENT AUTO 60 % (41-73); Platelet Count 229 K/mm3 (150-400); RDW Coefficient Variation 16.5 % (11.7-14.2); RDW Standard Deviation 56.5 fL (35.1-46.3); Red Blood Cell Count 3.77 M/mm3 (4.30-5.90); White Blood Cell Count 9.86 K/mm3 (4.00-11.30)
[2023-05-21 04:49] LABS: Albumin, Blood 3.2 g/dL (3.4-5.0); Albumin/Globulin Ratio 0.9 (0.8-1.8); Bilirubin, Total 0.6 mg/dL (0.1-1.0); Bun/Creatinine Ratio 30.4 (12.0-20.0); Calcium, Blood 8.8 mg/dL (8.5-10.1); Creatinine, Blood 1.84 mg/dL (0.60-1.20); Globulin, Blood 3.6 g/dL (2.2-4.0); Potassium, Blood 5.1 mmol/L (3.5-5.5); Total Protein, Blood 6.8 g/dL (6.4-8.2)
[2023-05-21] MEDS ORDERED: FentaNYL Citrate 50 MCG/ML 2 ML Injection ONE (05:23)
[2023-05-21] MEDS ORDERED: FentaNYL Citrate 50 MCG/ML 2 ML Injection IV ONE (05:25)
[2023-05-21] MEDS ORDERED: Nitroglycerin 1 INCH/GM PKT TOP ONE (05:35)
[2023-05-21] MEDS ORDERED: Nitroglycerin 0.4 MG SUBL SL ONE ×2 (05:45→06:45)
[2023-05-21] MEDS ORDERED: Furosemide 10 MG/ML 4ML Vial IV ONE (05:50)
[2023-05-21] MEDS ORDERED: Insulin Human Lispro 100 Units/ML 3ML Syringe SC SCH (07:30)
[2023-05-21] MEDS ORDERED: FLU VACC QS2023-24(6MOS UP)/PF 60 MCG/0.5 ML SYRINGE IM SCH (07:30)
[2023-05-21] MEDS ORDERED: Carvedilol 6.25 MG Tab PO SCH (08:00)
[2023-05-21 08:37] LABS: Base Excess Venous -4.5 mmol/L; Bicarbonate Venous 20.4 mmol/L (24.0-30.0); PCO2 Venous 41.7 mmHg (38-42); pH Blood Venous 7.32 (7.34-7.37)
[2023-05-21] MEDS ORDERED: Isosorbide Mononitrate 60 MG TABCR PO SCH (09:00)
[2023-05-21] MEDS ORDERED: Losartan Potassium 25 MG Tab PO SCH (09:00)
[2023-05-21] MEDS ORDERED: Cholecalciferol 1000 Unit Tablet (=25MCG) PO SCH (09:00)
[2023-05-21] MEDS ORDERED: Spironolactone 12.5 MG TAB PO SCH (09:00)
[2023-05-21] MEDS ORDERED: Clopidogrel Bisulfate 75 MG Tab PO SCH (09:00)
[2023-05-21] MEDS ORDERED: Aspirin 81 MG Chew PO SCH (09:00)
[2023-05-21] MEDS ORDERED: Allopurinol 100 MG Tab PO SCH (09:00)
[2023-05-21] MEDS ORDERED: Furosemide 20 MG Tab PO SCH (09:00)
[2023-05-21 09:05] LABS: Influenza A, PCR NEGATIVE (NEGATIVE); Influenza B, PCR NEGATIVE (NEGATIVE); Resp Syncytial Virus, PCR NEGATIVE (NEGATIVE); SARS-Cov-2 (COVID-19) PCR, MMC NEGATIVE (NEGATIVE)
[2023-05-21 10:23] LABS: Anti-Xa UFH, PHA Monitoring <0.10 IU/mL; International Normalized Ratio 0.99; Prothrombin Time Results 10.4 Sec (9.7-11.5)
[2023-05-21] MEDS ORDERED: Heparin Sodium,Porcine/0.5 NS 500 ML IV SCH (10:45)
[2023-05-21] MEDS ORDERED: Heparin Sodium 5000 Units/ML 1ML MDV IV ONE (10:45)
--- NOTE | 2023-05-21 12:40 | NUR ---
PROVIDER CONTACT DR. HACKETT AT BEDSIDE CONSULTING WITH THE PT.
--- NOTE | 2023-05-21 15:17 | NUR ---
PROVIDER CONTACT DR. NEWMAN CONTACTED AND INFORMED OF RISING [facility], ORDERS O RECHECK [facility] IN 4 HOURS. PROVIDER ASKED IF HE WANTED TO GIVE THE PT ANY FLUIDS AND HE DOES NOT AT THIS TIME. EMPLOYMENT INTERVIEWER NOTIFIED.
--- NOTE | 2023-05-21 18:24 | NUR ---
DAY SHIFT SUMMARY PT HAS BEEN ALERT AND ORIENTED THIS SHIFT COMMUNICATING APPROPRIATELY W STAFF. PT HAS DENIED ANY CP SINCE ARRIVING TO THE UNIT AND THE NITRO GTT WAS TITRATED DOWN FROM 15 MCG/MIN TO 5 MCG/MIN. HEPARIN GTT RUNNING UNINTERUPTED THIS SHIFT. THE PT HAS GONE IN AND OUT OF AFIB TO SR 60'S-90'S W PVC'S THIS SHIFT. PT'S BP WNL AND STABLE. SPO2 >90% ON 2L NC. PT AFEBRILE THIS SHIFT. DR. HACKETT CONSULTING THE PT AND PLAN TO GO TO ONLINE MARKETING ANALYST 05/23/23 SO PT FED DINNER WHICH HE TOLERATED WELL. PT'S 1700 DOSE OF COREG HELD PER DR. MORAN THE PT WAS HAVING LOW HR LOW 56. WILL REPORT TO ONCOMING RN.
--- NOTE | 2023-05-21 19:14 | NUR ---
PROVIDER CONTACT [facility] CAME BACK STILL TRENDING UP SO DR. HACKETT CONTACTED. PROVIDER STATING THAT THIS PT IS GOING TO ENGINEERING DESIGN SUPERVISOR ON 05/23/23 AND SINCE THE PT IS NOT SYMPTOMATIC WE DO NOT NEED TO CONTINUE TO TREND THE [facility]. NOC SHIFT RN NOTIFIED.
--- NOTE | 2023-05-21 20:00 | NUR ---
ASSUMPTION OF CARE: RECEIVED REPORT FROM KEYLA MIRZA. PT ALERT AND ORIENTED, ABLE TO ANSWER QUESTIONS AND MAKE NEEDS KNOWN. PT PLEASANT AND COOPERATIVE WITH CARE. PT ON 2L NC WITH SPO2 >95%, DENIES SOB. PT HAS SOME FINE CRACKLES NOTED IN THE LEFT LOWER LOBE. LADIES LOCKER ROOM ATTENDANT IN PLACE, SR/AFIB WITH PAC'S. HR 60'S-70'S. SBP 120'S-140'S. MAP >70. NITRO DRIP AT 5 MCG/MIN. PT DENIES ANY CHEST PAIN OR PRESSURE AT THIS TIME. PIV TO RFA, ROSA INTACT, FLUSH AND DRAW BACK, BOTH CURRENTLY INFUSING. HEPARIN DRIP AT 12 UNITS/KG/HR. PT RESTING COMFORTABLE IN BED AT THIS TIME. BED LOW AND LOCKED, CALL LIGHT IN REACH.
[2023-05-21] MEDS ORDERED: Atorvastatin 40 MG Tab PO SCH (21:00)
[2023-05-22] VITALS (83 sets, daily range): BP systolic 85–151; BP diastolic 41–115
[2023-05-22 01:20] LABS: BASOPHILS ABSOLUTE AUTO 0.02 K/mm3 (0.00-0.23); BASOPHILS PERCENT AUTO 0 % (0-2); EOSINOPHILS ABSOLUTE AUTO 0.17 K/mm3 (0.00-0.68); EOSINOPHILS PERCENT AUTO 2 % (0-6); Hematocrit 34.2 % (37.0-53.0); Hemoglobin 11.4 g/dL (13.5-17.5); IMMATURE GRAN ABSOLUTE AUTO 0.02 K/mm3 (0.00-0.10); IMMATURE GRAN PERCENT AUTO 0 % (0-1); LYMPHOCYTES ABSOLUTE AUTO 2.77 K/mm3 (0.84-5.20); LYMPHOCYTES PERCENT AUTO 28 % (21-46); MONOCYTES ABSOLUTE AUTO 0.82 K/mm3 (0.16-1.47); MONOCYTES PERCENT AUTO 8 % (4-13); Mean Corpuscular HGB 30.3 pg (26.0-34.0); Mean Corpuscular HGB Conc 33.3 g/dL (31.5-36.5); Mean Corpuscular Volume 91 fL (80-100); Mean Platelet Volume 11.4 fL (9.1-12.4); NEUTROPHILS PERCENT AUTO 62 % (41-73); Platelet Count 220 K/mm3 (150-400); RDW Coefficient Variation 16.6 % (11.7-14.2); Red Blood Cell Count 3.76 M/mm3 (4.30-5.90)
[2023-05-22 01:54] LABS: Albumin/Globulin Ratio 0.9 (0.8-1.8); Bilirubin, Total 0.6 mg/dL (0.1-1.0); Bun/Creatinine Ratio 26.8 (12.0-20.0); Creatinine, Blood 2.09 mg/dL (0.60-1.20); Globulin, Blood 3.3 g/dL (2.2-4.0); Potassium, Blood 4.3 mmol/L (3.5-5.5); Total Protein, Blood 6.3 g/dL (6.4-8.2)
[2023-05-22] MEDS ORDERED: Clarify Drug Order XX ONE (02:10)
--- NOTE | 2023-05-22 05:53 | NUR ---
SHIFT SUMMARY: PT CONTINUES TO REMAIN ALERT AND ORIENTED T/O THE SHIFT. ABLE TO MAKE NEEDS KNOWN. PT ABLE TO REST OFF AND ON. REMAINS ON THE NITRO DRIP AT 5 MCG/MIN, DENIES CHEST PAIN OR PRESSURE, NO C/O HEADACHE. PT IN SR/SB WITH FREQUENT PAC'S AND OCCASIONALLY GOES INTO AFIB. HR 50'S-60'S. SBP 120'S. PT ON 2L NC T/O THE SHIFT WITH SPO2 >95%. DENIES SOB. PT HAS NO C/O PAIN THIS SHIFT. ABLE TO VOID INTO THE URINAL YELLOW URINE. NO BM THIS SHIFT. TOLERATING PO INTAKE WITH NO COMPLAINTS. PIV TO RFA, PATENT AND INFUSING. PIV TO LFA, PATENT AND INFUSING. HEPARIN DRIP AT 12 UNITS/KG/HR. AFEBRILE. CALL LIGHT IN REACH, BED LOW AND LOCKED.
[2023-05-22] MEDS ORDERED: Omeprazole 20 MG CapCR PO SCH (06:00)
[2023-05-22] MEDS ORDERED: Pantoprazole Sodium 40 MG Tab PO SCH (06:00)
--- NOTE | 2023-05-22 07:00 | NUR ---
DURING BEDSIDE SHIFT REPORT W GAL RN THE PT IS LYING IN BED SLEEPING COMFORTABLY. PT AROUSES EASILY TO VOICE AND COMMUNICATES APPROPRIATELY W STAFF. PT DENYING ANY CP OR PRESSURE W NITRO GTT INFUSING AT 5 MCG/MIN. DR. NEWMAN AT BEDSIDE AT THIS TIME REQUESTING THAT WE ATTEMPT TO TITRATE THE NITRO GTT OFF. THIS RN PLACED THE NITRO GTT ON STAND-BY HOWEVER, IN APPROX TEN MINUTES THE PT BECOME SOB EXPRESSING SEVERE CHEST PRESSURE SO THE NITRO GTT TURNED BACK ON.
[2023-05-22] MEDS ORDERED: Heparin Sodium,Porcine 5,000 UNIT/0.5 ML SDV SC SCH (09:00)
[2023-05-22] MEDS ORDERED: Furosemide 10 MG/ML 4ML Vial IV SCH (09:00)
[2023-05-22] MEDS ORDERED: Dose Adjust by Pharmacy XX STA (09:16)
--- NOTE | 2023-05-22 13:44 | NUR ---
Pt. is awake in bed and welcomes my visit. Pt. is pleasant. Facilitated a life review and considered the Pts. years of service. Listened with interest, empathy, and appreciation. Pt. displays evidence of engagement and awareness. Pt. verbalized an expectation for a procedure tomorrow and spoke about his personal esperanza in God. Prayed with Pt. Pt. verbalized gratitude for the spiritual care visit.
[2023-05-22] MEDS ORDERED: Mag Hydrox/Al Hydrox/Simeth 18 ML,Lidocaine 2% Viscous Soln 9 ML,Atropine/Scopalam/Hyos... PO ONE (18:20)
--- NOTE | 2023-05-22 18:42 | NUR ---
DAY SHIFT SUMMARY PT HAS REMAINED ALERT AND ORIENTED THIS SHIFT COMMUNICATING APPROPRIATELY W STAFF. THIS RN ATTEMPTED TO TITRATE THE NITRO GTT OFF THIS AM PER PROVIDER REQUEST HOWEVER, THE PT BECAME VERY SYMPTOMATIC REPORTING SEVERE CP AND PRESSURE SO NITRO GTT RESTARTED W GOOD RELIEF. PT DENIED ANYMORE CP THE REST OF THE SHIFT W NITRO GTT INFUSING AT 5 MCG/MIN UNTIL AFTER HE ATE DINNER AND REPORETED SEVERE SUBSTERNAL CP SO NITRO GTT TITRATED UP W NO RELIEF. PROVIDER CONTACTED AND GI COCKTAIL ORDERED. NITRO GTT UP TO 45 MCG/MIN AND GI COCKTAIL GIVEN W GOOD RELIEF OF SYMPTOMS. BP WNL AND STABLE. MONITOR SHOWING SA/SB 50'S-60'S. PT DENIED ANY NAUSEA THIS SHIFT. HEPARIN GTT INFUSING UNINTERUPTED THIS SHIFT. SPO2 >92% ON 2L NC. WILL REPORT TO ONCOMING RN.
--- NOTE | 2023-05-22 19:26 | NUR ---
ASSUMED CARE OF PATIENT AT 1900. REPORT RECEIVED FROM HERMES RAMIRES. VSS, PATIENT DENIES CHEST PAIN AT THIS TIME & NO ACUTE NEEDS IDENTIFIED. HEPARIN INFUSING AT 12MCG/KG/HR AND NITRO INFUSING AT 45MCG/MIN. PT IS RECEIVING 2LPM O2 VIA NC. SEE SHIFT ASSESSMENT FOR FULL ASSESSMENT DETAILS.
[2023-05-23] VITALS (75 sets, daily range): BP systolic 92–153; BP diastolic 36–138
[2023-05-23 03:44] LABS: BASOPHILS ABSOLUTE AUTO 0.01 K/mm3 (0.00-0.23); BASOPHILS PERCENT AUTO 0 % (0-2); EOSINOPHILS ABSOLUTE AUTO 0.24 K/mm3 (0.00-0.68); EOSINOPHILS PERCENT AUTO 2 % (0-6); Hematocrit 30.7 % (37.0-53.0); Hemoglobin 10.4 g/dL (13.5-17.5); IMMATURE GRAN ABSOLUTE AUTO 0.03 K/mm3 (0.00-0.10); IMMATURE GRAN PERCENT AUTO 0 % (0-1); LYMPHOCYTES PERCENT AUTO 24 % (21-46); MONOCYTES ABSOLUTE AUTO 0.94 K/mm3 (0.16-1.47); MONOCYTES PERCENT AUTO 9 % (4-13); Mean Corpuscular HGB 30.6 pg (26.0-34.0); Mean Corpuscular HGB Conc 33.9 g/dL (31.5-36.5); Mean Corpuscular Volume 90 fL (80-100); Mean Platelet Volume 11.1 fL (9.1-12.4); NEUTROPHILS ABSOLUTE AUTO 6.51 K/mm3 (1.96-9.15); NEUTROPHILS PERCENT AUTO 64 % (41-73); Platelet Count 192 K/mm3 (150-400); RDW Coefficient Variation 16.4 % (11.7-14.2); RDW Standard Deviation 54.4 fL (35.1-46.3); White Blood Cell Count 10.13 K/mm3 (4.00-11.30)
[2023-05-23 04:04] LABS: Albumin, Blood 2.8 g/dL (3.4-5.0); Albumin/Globulin Ratio 0.9 (0.8-1.8); Bilirubin, Total 0.7 mg/dL (0.1-1.0); Bun/Creatinine Ratio 26.7 (12.0-20.0); Calcium, Blood 8.7 mg/dL (8.5-10.1); Creatinine, Blood 2.4 mg/dL (0.60-1.20); Globulin, Blood 3.1 g/dL (2.2-4.0); Potassium, Blood 4.2 mmol/L (3.5-5.5); Total Protein, Blood 5.9 g/dL (6.4-8.2)
[2023-05-23] MEDS ORDERED: Clarify Drug Order XX ONE (04:25)
--- NOTE | 2023-05-23 06:23 | NUR ---
SHIFT SUMMARY PATIENT REMAINED A&O X 4 T/O ENTIRETY OF SHIFT. AFEBRILE. ABLE TO FOLLOW VERBAL COMMANDS AND MAKE PURPOSEFUL MOVEMENTS. MONITOR SHOWED SA AND SB WITH HR IN 50's-70's. BP STABLE. SBP's 100's-130's. PT REPORTED CP DURING DOWNWARD TITRATION OF NITROGLYCERIN TO 5MCG/MIN. PT VERBALIZED RELIEF OF CHEST PAIN WHEN NITRO WAS INCREASED TO 15MCG/MIN. LUNG SOUNDS CLEAR T/O, ON 2LPM O2 VIA NC. NO BM THIS SHIFT, HAS BEEN NPO SINCE MIDNIGHT IN PREPARATION FOR 05/23/23 AM. UTILIZES BEDSIDE URINAL WITH CLEAR YELLOW URINE OUTPUT. 20G TO L WRIST INFUSING HEPARIN AT 12U/KG/HR. 18G TO RFA INFUSING NITRO AT 15MCG/MIN. CALL LIGHT IN REACH. WILL CONTINUE TO MONITOR AND REPORT TO ONCOMING NURSE.
[2023-05-23] MEDS ORDERED: Dose Adjust by Pharmacy XX STA (12:47)
[2023-05-23 17:16] LABS: Source, Urine Voided
[2023-05-23 17:52] LABS: Appearance, Urine Clear (Clear); Bilirubin, Urine Neg (Neg); Blood, Urine Neg (Neg); Color, Urine Yellow (P-Yellow); Glucose Qualitative, Urine Neg (Neg); Ketones, Urine Neg (Neg); Leukocyte Esterase, Urine Neg (Neg); Nitrite, Urine Neg (Neg); Protein, Urine 1+ (Neg); Specific Gravity, Urine 1.015 (1.003-1.022); Urobilinogen, Urine NORM (Normal)
--- NOTE | 2023-05-23 18:02 | NUR ---
SHIFT SUMMARY NO ACUTE CHANGES THIS SHIFT. PT HAS REMAINED AWAKE, ALERT, AND ORIENTED. PT HAS ONLY COMPLAINED OF CHEST PAIN WHEN ATTEMPTING TO TITRATE NITRO GTT DOWN THIS MORNING. NITRO GTT INFUSING AT 15 MCG/MIN AND HEPARIN AT 12 UNITS/KG/HR. VITAL SIGNS HAVE REMAINED STABLE. PT ON ROOM AIR. PT USES URINAL TO VOID INDEPENDENTLY. PT SHIFTING SELF IN BED FOR COMFORT THROUGHOUT THE DAY. PT TAKING PO INTAKE WELL. WILL CONTINUE TO MONITOR AND REPORT OFF TO ONCOMING RN.
--- NOTE | 2023-05-23 19:20 | NUR ---
ASSUMED CARE OF PATIENT AT 1900. REPORT RECEIVED FROM HERMES EDGAR. VSS AND NO ACUTE NEEDS IDENTIFIED AT THIS TIME. DENIES CHEST PAIN OR SOB. NITRO INFUSING AT 15 MCG/MIN, HEPARIN INFUSING AT 12U/KG/HR. SEE SHIFT ASSESSMENT FOR FULL ASSESSMENT DETAILS.
[2023-05-23] MEDS ORDERED: NS 1,000 ML IV SCH ×2 (20:40→20:45)
[2023-05-24] VITALS (62 sets, daily range): BP systolic 104–153; BP diastolic 46–115
[2023-05-24 03:30] LABS: Hematocrit 29.3 % (37.0-53.0); Mean Platelet Volume 11.9 fL (9.1-12.4); Platelet Count 190 K/mm3 (150-400)
[2023-05-24] MEDS ORDERED: Clarify Drug Order XX ONE (04:20)
[2023-05-24 04:38] LABS: Albumin, Blood 2.9 g/dL (3.4-5.0); Anion Gap 4 mmol/L (6-16); Blood Urea Nitrogen 62 mg/dL (8-24); Bun/Creatinine Ratio 26.8 (12.0-20.0); CO2, Blood 24 mmol/L (21-32); Calcium, Blood 8.5 mg/dL (8.5-10.1); Chloride, Blood 108 mmol/L (98-108); Creatinine, Blood 2.31 mg/dL (0.60-1.20); Glomerular Filtration Rate 27 (60-); Glucose, Blood 167 mg/dL (70-99); Iron Serum 43 ug/dL (65-175); Magnesium, Blood 1.9 mg/dL (1.6-2.4); Percent Saturation 22.6 % (20.0-50.0); Phosphorus, Blood 3.9 mg/dL (2.5-4.9); Potassium, Blood 4.2 mmol/L (3.5-5.5); Sodium, Blood 136 mmol/L (136-145); Total Iron Binding Capacity 190 ug/dL (250-450); Uric Acid, Blood 10.4 mg/dL (3.5-7.2)
--- NOTE | 2023-05-24 06:02 | NUR ---
SHIFT SUMMARY PT REMAINED A&0 X 4 T/O ENTIRETY OF SHIFT. HE IS ABLE TO FOLLOW VERBAL COMMANDS AND MAKE PURPOSEFUL MOVEMENTS. AT APPROXIMATELY 0245 PT REPORTED ONCOMING CHEST PAIN THAT HE STATED WAS AT A THREE ON THE PAIN SCALE. NITRO WAS TITRATED UP TO 30 MCG/MIN AT WHICH POINT PT REPORTED HIS CHEST PAIN HAD RESOLVED. BETWEEN APPROXIMATELY 0402 AND 0413 NITRO WAS TITRATED BACK DOWN TO 15MCG/MIN, WHICH PT REPORTED NO RETURN OF CHEST PAIN. AT APPROXIMATELY 0519 PT REPORTED ONCOMING CHEST PAIN AT A THREE AGAIN. NITRO WAS GRADUALLY TITRATED UP TO 45MCG/MIN WHEN PT FINALLY REPORTED RESOLUTION OF CP. DENIED SOB DURING THESE EPISODES. MONITOR SHOWED SA AND SB WITH HR IN 60's-80's. BP STABLE WITH SBP's 110's-150's. 2LPM O2 VIA NC APPLIED APPROXIMATELY AROUND MIDNIGHT. O2 SATURATIONS REMAINED > 92% FOLLOWING O2 APPLICATION. NO BM THIS SHIFT. NPO SINCE MIDNIGHT. UTILIZES BEDSIDE URINAL WITH YELLOW URINE OUTPUT. 20G TO L WRIST INFUSING NS AT 100mL/HR, 18G TO RFA INFUSING HEPARIN AT 12U/KG/HR AND NITRO AT 45MCG/MIN. CALL LIGHT IN REACH. WILL CONTINUE TO MONITOR AND REPORT TO ONCOMING NURSE.
[2023-05-24] MEDS ORDERED: Furosemide 10 MG/ML 4ML Vial IV SCH (09:00)
[2023-05-24] MEDS ORDERED: FentaNYL Citrate 50 MCG/ML 2 ML Injection ONE ×2 (09:14→12:01)
[2023-05-24] MEDS ORDERED: FentaNYL Citrate 50 MCG/ML 2 ML Injection IV PRN (09:15)
[2023-05-24] MEDS ORDERED: FentaNYL Citrate 50 MCG/ML 2 ML Injection IV ONE (10:00)
--- NOTE | 2023-05-24 10:41 | NUR ---
CHEST PAIN PT WITH INCREASED CHEST PAIN THIS MORNING. NITRO GTT TITRATED UP PER ORDERS AND FLOWSHEET. CHEST PAIN NOT RESOLVED BY NITRO GTT ALONE. DR NEWMAN NOTIFIED AND ORDERS RECIEVED FOR FENTANYL PRN. PT REPORTED MINIMAL RELIEF S/P FENTANYL. ATTEMPTED TO CONTACT DR HACKETT INITIALLY WITHOUT SUCCESS. DR HACKETT TO BEDSIDE APPROX 1 HOUR AFTER INITIAL ATTEMPT TO CONTACT. PT HAS RECIEVED TWO DOSES OF FENTANYL TO CONTROL CHEST PAIN AND NITRO GTT TITRATED UP TO 115 MCG/MIN AT THIS TIME. DR HACKETT REPORTS THAT DR BEACH WILL TAKE PT TO [facility]ATH[facility] NOW. VITAL SIGNS STABLE AT THIS TIME. HEPARIN GTT INFUSING PER ORDERS. WILL CONTINUE TO MONITOR.
[2023-05-24] MEDS ORDERED: Heparin Sodium 1000 Units/ML 10ML MDV ONE ×3 (11:06→13:46)
[2023-05-24] MEDS ORDERED: NS 1,000 ML IV ONE ×2 (11:06→12:01)
[2023-05-24] MEDS ORDERED: NS 250 ML IV ONE ×2 (11:06→13:22)
[2023-05-24] MEDS ORDERED: NiCARdipine HCL 1,000 MCG/5 ML SYR ONE (11:07)
[2023-05-24] MEDS ORDERED: Nitroglycerin 2 MG/20 ML BTL ONE (11:07)
--- NOTE | 2023-05-24 11:17 | NUR ---
Spiritual Care Visit. Pt. is awake in bed and welcomes my visit. Pt. is pleasant and displays evidence of awareness and engagement. Facilitate a prognosis uppdate, and listen with interest, empathy, and a calming presence. Rapport is re-established as we consider matters of esperanza and trust. Pt. verbalizes his confidence in getting his procedure taking place here at this hospital and that he is trusting God with the outcome. Prayed with the Pt. Pt. verbalized gratitude for the spiritual care visit and welcomed this bilingual loan processor to return.
[2023-05-24] MEDS ORDERED: Midazolam HCl 1MG / ML 2ML Vial ONE (12:01)
[2023-05-24] MEDS ORDERED: Clopidogrel Bisulfate 300 MG Cap ONE (12:08)
[2023-05-24] MEDS ORDERED: Morphine Sulfate 4 MG/1 ML Injection ONE ×2 (14:23→14:30)
[2023-05-24] MEDS ORDERED: NS 500 ML IV ONE (15:23)
[2023-05-24] MEDS ORDERED: NS 1,000 ML IV SCH (16:20)
--- NOTE | 2023-05-24 16:22 | NUR ---
S/P PUBLIC HEALTH TECHNOLOGIST PT RETURNED FROM PUBLIC HEALTH TECHNOLOGIST AT 1600 VIA BED. PT IS AWAKE, ALERT, AND ORIENTED. PT COMPLAING OF CHEST PAIN UPON ARRIVAL. NITRO GTT INFUSING AT 15 MCG/MIN. PT WITH RIGHT BRACHIAL ACCESS SITE WITH DRESSING IN PLACE. TR BAND IN PLACE TO RIGHT RADIAL SITE WITH ARM BOARD. SITE SOFT, NONTENDER, NO HEMATOMA NOTED. DISTAL PULSE PRESENT, FINGERS WITHOUT N/T AND GOOD CAP REFILL. RIGHT FEMORAL SHEATH IN PLACE. SHEATH CONNECTED TO MONITOR WITH GOOD WAVEFORM NOTED, SITE SOFT, NONTENDER, NO HEMATOMA NOTED. REINFORCED THAT PT MUST LAY SUPINE AT THIS TIME. VITAL SIGNS STABLE. WILL PULL SHEATH PER ORDERS.
--- NOTE | 2023-05-24 18:13 | NUR ---
SHIFT SUMMARY NO ACUTE CHANGES SINCE RETURN FROM LIQUOR INSPECTOR. PT RESTING QUIETLY AT THIS TIME. PT REMAINS ALERT AND ORIENTED WHEN AWAKE. PT WITH NITRO GTT INFUSING AT 25 MCG/MIN. PT DENIES CHEST PAIN AT THIS TIME. NS INFUSING AT 100 ML/HR. RIGHT FEMORAL SHEATH REMAINS C/D/I, UNABLE TO PULL AT THIS TIME DUE TO PTT >50. TR BAND TO RIGHT RADIAL SITE REMAINS IN PLACE, DEFLATING PER POLICY AT THIS TIME. VITAL SIGNS REMAIN STABLE. PT ABLE TO USE URINAL TO VOID WITH ASSISTANCE. WILL CONTINUE TO MONITOR AND REPORT OFF TO ONCOMING RN.
--- NOTE | 2023-05-24 20:24 | NUR ---
INITIAL NOTE Report received, patient plan to transfer, resting in bed alert/oriented, removing 2 mL every 30 minutes from TR band, presently at 5 mL remaining. VS stable, sites intact to R femoral, R wrist and R brachial, appears to be small oozing of site to right brachial site, monitoring. Good pulses proximal/distal to sites, Art line in place, rezeroed. Patient denies needs, tolerated medications, updated to transfer pending, IV pumps changed to travel pumps, aPTT returned and sheath pull in progress. Held insulin as he declined dinner due to laying flat.
[2023-05-25] VITALS (14 sets, daily range): BP systolic 99–150; BP diastolic 51–86
--- NOTE | 2023-05-25 00:36 | NUR ---
UPDATE Earlier sheath remained in place, upon return aPTT, ok to d/c sheath; Sterile procedure accompanied by Torrie Alvarado RN, and Darlin RN. Tolerated removal well, pressure held for 30" and sterile gauze/tegaderm placed, monitoring site, good pulses distal/proximal. Additionally radial access earlier, T-R band in place at that time, titrated off 2 cc every 30" and now tegaderm placed, T-R band removed, site intact with good pulses distal/proximal as well. Upper right arm hematoma noted, size monitored, small amount of oozing noted very slowly to both sites, continuing to monitor. VS stable, no acute concerns, plan to transfer in AM.
[2023-05-25 03:54] LABS: Albumin, Blood 2.7 g/dL (3.4-5.0); Anion Gap 6 mmol/L (6-16); Blood Urea Nitrogen 61 mg/dL (8-24); Bun/Creatinine Ratio 25.8 (12.0-20.0); CO2, Blood 23 mmol/L (21-32); Calcium, Blood 8.3 mg/dL (8.5-10.1); Chloride, Blood 109 mmol/L (98-108); Creatinine, Blood 2.36 mg/dL (0.60-1.20); Glomerular Filtration Rate 26 (60-); Glucose, Blood 152 mg/dL (70-99); Phosphorus, Blood 4.5 mg/dL (2.5-4.9); Potassium, Blood 4.4 mmol/L (3.5-5.5); Sodium, Blood 138 mmol/L (136-145)
--- NOTE | 2023-05-25 06:43 | NUR ---
SHIFT SUMMARY No acute changes, some very mild oozing earlier at right radial and right brachial sites, both have subsided and appear to be unchanged for the last several hours. Right femoral remains unchanged, patient remains pain-free with Nitro gtt at 15. VS remain stable on shift, patient awoke, requested to shave with his electric shaver. Report called to Delaney/Omkar recently, RN receiving denied questions at that time, pending transport otherwise.
--- NOTE | 2023-05-25 07:00 | NUR ---
ASSUMPTION OF CARE PT RECEIVING NITRO 15MCG/MIN AND NS 100ML/HR. HE IS ALERT AND ORIENTED. HE DOES HAVE 3/10 MIDSTERNAL CHEST PAIN. MEDICATED PER EMAR AND PT REPORTS RELIEF. PLAN FOR PT TO BE TRANSPORTED TO [facility].
--- NOTE | 2023-05-25 07:07 | NUR ---
UPDATE WHILE GIVING REPORT TO AM RN PT STARTING HAVING CHEST PAIN AFTER HE BRUSHED HIS TEETH AND BRUSHED HIS HAIR. PRN FENTANYL GIVEN. WAITING FOR TRANSPORT NOW.
--- NOTE | 2023-05-25 08:15 | NUR ---
TRANSFER PT TAKEN OUT OF DEPARTMENT VIA GURNEY WITH EMS AT THIS TIME. HE IS RECEIVING NITRO 45MCG/MIN AND NS 100ML/HR. PT HAD TWO PATIENT BELONGINGS BAGS AND ONE PERSONAL BLACK BAG.
== END 2023-05-25 08:15 | disposition short-term general hospital (02) | DRG 250 ==
LOC: ER 04:03 → PCU 04:04 → ICUE 04:04
PROVIDERS: Hospitalist; Pharmacist; Student in an Organized Health Care Education/Training Program; ADMIT Internal Medicine
PROC: 02703ZZ Dilation of Coronary Artery, One Artery, Percutaneous Approach (ICD-10-PCS; principal; 2023-05-24)
PROC: B2111ZZ Fluoroscopy of Multiple Coronary Arteries using Low Osmolar Contrast (ICD-10-PCS; 2023-05-24)
PROC: 4A023N8 Measurement of Cardiac Sampling and Pressure, Bilateral, Percutaneous Approach (ICD-10-PCS; 2023-05-24)
DX: I21.4 Non-ST elevation (NSTEMI) myocardial infarction (principal); J96.01 Acute respiratory failure with hypoxia; I13.0 Hypertensive heart and chronic kidney disease with heart failure and stage 1 through stage 4 chronic kidney disease, or unspecified chronic kidney disease; N18.4 Chronic kidney disease, stage 4 (severe); N17.9 Acute kidney failure, unspecified; I50.42 Chronic combined systolic (congestive) and diastolic (congestive) heart failure; E11.22 Type 2 diabetes mellitus with diabetic chronic kidney disease; D63.1 Anemia in chronic kidney disease; I25.5 Ischemic cardiomyopathy; I25.110 Atherosclerotic heart disease of native coronary artery with unstable angina pectoris; K21.9 Gastro-esophageal reflux disease without esophagitis; J44.9 Chronic obstructive pulmonary disease, unspecified; E78.5 Hyperlipidemia, unspecified; Z88.0 Allergy status to penicillin; Z91.041 Radiographic dye allergy status; Z79.82 Long term (current) use of aspirin; Z79.02 Long term (current) use of antithrombotics/antiplatelets; Z79.84 Long term (current) use of oral hypoglycemic drugs; Z79.899 Other long term (current) drug therapy; Z98.890 Other specified postprocedural states; Z95.5 Presence of coronary angioplasty implant and graft; Z87.891 Personal history of nicotine dependence
CPT/HCPCS: 0241U; 36415; 71045; 71260; 76937; 80053; 80069; 82570; 82803; 82947; 83540; 83550; 83735; 83880; 84145; 84156; 84484; 84550; 85014; 85018; 85025; 85049; 85347; 85520; 85610; 85730; 92920; 93005; 93010; 93456; 94660; 94762; 96365-59; 96366; 96367; 96368; 96375-59; 96376; 99152; 99153; 99285-25; A9270; C1725; C1760; C1769; C1877; C1887; C1894; C8929; G0378; J1644; J1940; J2250; J2270; J3010; J7030; J7040; J7050; Q9957; Q9967

== ENCOUNTER → 2023-11-24 | Outpatient (CLI) | payer OTHER ==
[2023-11-24 14:58] LABS: BASOPHILS ABSOLUTE AUTO 0.02 K/mm3 (0.00-0.23); BASOPHILS PERCENT AUTO 0 % (0-2); EOSINOPHILS ABSOLUTE AUTO 0.11 K/mm3 (0.00-0.68); EOSINOPHILS PERCENT AUTO 1 % (0-6); Hematocrit 31.8 % (37.0-53.0); Hemoglobin 10.3 g/dL (13.5-17.5); IMMATURE GRAN ABSOLUTE AUTO 0.05 K/mm3 (0.00-0.10); IMMATURE GRAN PERCENT AUTO 1 % (0-1); LYMPHOCYTES ABSOLUTE AUTO 1.84 K/mm3 (0.84-5.20); LYMPHOCYTES PERCENT AUTO 21 % (21-46); MONOCYTES PERCENT AUTO 8 % (4-13); Mean Corpuscular HGB 30.7 pg (26.0-34.0); Mean Corpuscular HGB Conc 32.4 g/dL (31.5-36.5); Mean Corpuscular Volume 95 fL (80-100); Mean Platelet Volume 11.3 fL (9.1-12.4); NEUTROPHILS ABSOLUTE AUTO 6.09 K/mm3 (1.96-9.15); NEUTROPHILS PERCENT AUTO 69 % (41-73); Platelet Count 344 K/mm3 (150-400); RDW Coefficient Variation 15.4 % (11.7-14.2); RDW Standard Deviation 53.9 fL (35.1-46.3); Red Blood Cell Count 3.36 M/mm3 (4.30-5.90); White Blood Cell Count 8.81 K/mm3 (4.00-11.30)
[2023-11-24 15:18] LABS: Albumin, Blood 2.8 g/dL (3.4-5.0); Albumin/Globulin Ratio 0.7 (0.8-1.8); Bilirubin, Total 0.6 mg/dL (0.1-1.0); Bun/Creatinine Ratio 15.7 (12.0-20.0); Calcium, Blood 8.5 mg/dL (8.5-10.1); Creatinine, Blood 1.59 mg/dL (0.60-1.20); Globulin, Blood 3.8 g/dL (2.2-4.0); Percent Saturation 15.9 % (20.0-50.0); Potassium, Blood 4.8 mmol/L (3.5-5.5); Thyroid Stimulating Hormone 5.97 uIU/mL (0.360-4.800); Total Protein, Blood 6.6 g/dL (6.4-8.2)
== END ==
LOC: LAB 14:46 → LAB SHORT 14:46
PROVIDERS: Physician Assistant
DX: R53.83 Other fatigue (principal); E61.1 Iron deficiency; N18.32 Chronic kidney disease, stage 3b
CPT/HCPCS: 80053; 82728; 83540; 83550; 84443; 85025

== ENCOUNTER 2024-03-09 08:24 | Emergency (ER) | payer OTHER ==
[~2024-03-09] VITALS: Ht 177.8 cm; Wt 90.7 kg
[2024-03-09 09:04] LABS: BASOPHILS ABSOLUTE AUTO 0.03 K/mm3 (0.00-0.23); BASOPHILS PERCENT AUTO 0 % (0-2); EOSINOPHILS ABSOLUTE AUTO 0.19 K/mm3 (0.00-0.68); EOSINOPHILS PERCENT AUTO 2 % (0-6); Hematocrit 29.7 % (37.0-53.0); Hemoglobin 9.8 g/dL (13.5-17.5); IMMATURE GRAN ABSOLUTE AUTO 0.05 K/mm3 (0.00-0.10); IMMATURE GRAN PERCENT AUTO 0 % (0-1); LYMPHOCYTES PERCENT AUTO 23 % (21-46); MONOCYTES ABSOLUTE AUTO 0.87 K/mm3 (0.16-1.47); MONOCYTES PERCENT AUTO 7 % (4-13); Mean Corpuscular HGB 31.3 pg (26.0-34.0); Mean Corpuscular Volume 95 fL (80-100); Mean Platelet Volume 11.5 fL (9.1-12.4); NEUTROPHILS ABSOLUTE AUTO 8.07 K/mm3 (1.96-9.15); NEUTROPHILS PERCENT AUTO 68 % (41-73); Platelet Count 273 K/mm3 (150-400); RDW Coefficient Variation 15.5 % (11.7-14.2); Red Blood Cell Count 3.13 M/mm3 (4.30-5.90); White Blood Cell Count 11.91 K/mm3 (4.00-11.30)
[2024-03-09] MEDS ORDERED: Ondansetron HCl 2 MG / ML 2ML Vial IV ONE (09:25)
[2024-03-09] MEDS ORDERED: Morphine Sulfate 4 MG/1 ML Injection IV ONE (09:25)
[2024-03-09 09:42] LABS: Albumin, Blood 2.6 g/dL (3.4-5.0); Albumin/Globulin Ratio 0.9 (0.8-1.8); Bilirubin, Total 0.6 mg/dL (0.1-1.0); Calcium, Blood 8.9 mg/dL (8.5-10.1); Creatinine, Blood 2.09 mg/dL (0.60-1.20); Potassium, Blood 5.4 mmol/L (3.5-5.5); Total Protein, Blood 5.6 g/dL (6.4-8.2)
[2024-03-09] MEDS ORDERED: Lidocaine 2% Viscous Soln 15 ML UDC PO ONE (10:25)
[2024-03-09] MEDS ORDERED: Mag Hydrox/AL Hydrox/Simeth 30 ML UDC PO ONE (10:25)
[2024-03-09] MEDS ORDERED: NS 1,000 ML IV ONE (10:55)
[2024-03-09 11:56] VITALS: BP 79/47
[2024-03-09] MEDS ORDERED: EPINEPhrine HCl 0.1 MG/ML 10ML SYR XX ONE (16:28)
[2024-03-09] MEDS ORDERED: Rocuronium Bromide 10 MG/ML 5ML Injection IV ONE (16:28)
[2024-03-09] MEDS ORDERED: Ketamine HCl 100 MG / ML 5ML Vial XX ONE (16:28)
== END 2024-03-09 14:20 ==
LOC: ER 08:24
PROVIDERS: Emergency Medicine
DX: I46.9 Cardiac arrest, cause unspecified (principal); E11.9 Type 2 diabetes mellitus without complications; I50.9 Heart failure, unspecified; I11.0 Hypertensive heart disease with heart failure; I25.2 Old myocardial infarction; Z87.891 Personal history of nicotine dependence; Z88.0 Allergy status to penicillin; Z91.041 Radiographic dye allergy status; Z79.82 Long term (current) use of aspirin; Z79.02 Long term (current) use of antithrombotics/antiplatelets; Z79.899 Other long term (current) drug therapy
CPT/HCPCS: 31500; 71045; 80053; 84484; 85025; A9270; J2270; J2405; J7030; J7060